=== PATIENT | female | born 1940 | race Hispanic/Latino ===

== ENCOUNTER 2018-08-18 03:28 | Inpatient (IN) | payer MEDICARE, OTHER ==
[2018-08-18] MEDS ORDERED: Ketorolac Tromethamine 30 MG/ML VIAL ONE (04:06)
[2018-08-18 04:15] LABS: #Basophils 0.1 thou/uL (0.0-0.2); #Eosinphils 0.2 thou/uL (0.0-0.7); #Lymphocytes 1.9 thou/uL (1.20-3.40); #Monocytes 0.4 thou/uL (0.11-0.59); #Neutrophils 3.4 thou/uL (1.40-6.50); %Lymphocytes 31.6 % (21.0-51.0); %Monocytes 6.2 % (0.0-10.0); %Neutrophils 58.3 % (42.0-75.0); Hemoglobin 12.4 g/dL (12.0-16.0); Mean Corpuscular HGB CONC 30.7 g/dL (32.0-36.0); Mean Corpuscular Hemoglobin 30.4 pg (27.0-31.0); Mean Platelet Volume 8.4 fL (7.4-10.4); Platelet Count 137 thou/uL (130-400); RBC Distribution Width 13.7 % (11.5-14.5); Red Blood Cell (RBC) Count 4.07 mill/uL (4.20-5.40); White Blood Cell (WBC) Count 5.9 thou/uL (4.8-10.8)
[2018-08-18 04:37] LABS: ALT (SGPT) 28 U/L (8-55); AST (SGOT) 42 U/L (5-34); Albumin 3.5 g/dL (3.4-4.8); Alkaline Phosphatase 94 U/L (40-150); Anion Gap 11 mmol/L (10-20); BUN (Urea Nitrogen) 15 mg/dL (9.8-20.1); Bilirubin, Total 0.8 mg/dL (0.2-1.2); Calc. Creatinine Clearance 0 mL/min (70-130); Calcium 9.7 mg/dL (7.8-10.44); Carbon Dioxide 29 mmol/L (23-31); Chloride 100 mmol/L (98-107); Estimated GFR-MDRD 52; Globulin 3.6 g/dL (2.4-3.5); Glucose 218 mg/dL (83-110); Potassium 4.3 mmol/L (3.5-5.1); Protein, Total 7.1 g/dL (6.0-8.3); Sodium 136 mmol/L (136-145)
[2018-08-18 05:55] LABS: INR-International Normal Ratio 1.1; PTT 31.5 SEC (22.9-36.1); Prothrombin Time 14.4 SEC (12.0-14.7)
[2018-08-18] MEDS ORDERED: Acetaminophen 325 MG TAB PO PRN (06:26)
[2018-08-18] MEDS ORDERED: Ondansetron PF 4 MG/2 ML Vial IVP PRN (06:26)
[2018-08-18] MEDS ORDERED: Ondansetron ODT 4 MG TAB PO PRN (06:26)
[2018-08-18] MEDS ORDERED: HYDROcodone/Acetaminophen 5/325 mg Tablet PO PRN ×2 (06:27)
[2018-08-18] MEDS ORDERED: Sodium Chloride 0.9% 1,000 ML IV SCH (06:44)
[2018-08-18] MEDS ORDERED: Dextrose 50% Abboject 50 ML SYRINGE SLOW IVP PRN (06:44)
[2018-08-18] MEDS ORDERED: Dextrose 5% in Water 1,000 ML IV PRN (06:44)
[2018-08-18] MEDS ORDERED: Cyclobenzaprine 10 MG TAB PO PRN (06:44)
[2018-08-18] MEDS ORDERED: traMADol HCl 50 MG TAB PO PRN (06:44)
[2018-08-18] MEDS ORDERED: hydrALAZINE 20 MG/ML VIAL SLOW IVP PRN (06:44)
--- NOTE | 2018-08-18 07:02 | HP ---
This is Augustus Blood PA-C dictating a report for Chucho Rossi MD. REQUESTING PHYSICIAN: Dr. Jiang. CONSULTATIONS: Neurosurgery, Dr. Red. HISTORY OF PRESENT ILLNESS: The patient is a 77-year-old woman, who had gotten up to go to the bathroom this morning, when she came back she missed a step and fell, hit her head on the tiled floor. She also landed on her right hip and shoulder. She was brought to the emergency department where she underwent evaluation and examination and was noted to have a moderate-sized subdural hematoma. She is unsure of how long or if she had loss of consciousness, but she has been alert and oriented since her arrival in the emergency department. MEDICATIONS: 1. Metformin. 2. . 3. NovoLog. 4. Oxybutynin. ALLERGIES: NONE. PAST MEDICAL HISTORY: Hypertension and diabetes. PAST SURGICAL HISTORY: Cholecystectomy. SOCIAL HISTORY: The patient smoked greater than 20 years ago. Rare alcohol. Denies drugs. She lives with family and ambulates without assistance. REVIEW OF SYSTEMS: A 10-point review of systems is negative as otherwise stated. PHYSICAL EXAMINATION: VITAL SIGNS: Blood pressure 136/64, heart rate 60, respirations 18, oxygen saturation is 96% on room air, and temperature is 98.6. GENERAL: The patient is resting comfortably in bed. She is awake, alert, and oriented x3. Clawson Coma Scale is 15. She has just undergone evaluation by the neurosurgical PA. She was appropriate during the entire exam. HEENT: Head is normocephalic, atraumatic. Eyes, extraocular motion intact. PERRLA bilaterally. Ears are atraumatic without discharge. Nose is atraumatic without discharge. Oropharynx is clear. NECK: Nontender. Trachea is midline. No JVD. CHEST: Clear to auscultation with good inspiratory and expiratory efforts. HEART: Regular rate and rhythm. ABDOMEN: Soft, flat, nontender with active bowel sounds. PELVIS: Stable with some tenderness to palpation to the left hip. EXTREMITIES: Neurovascularly intact x4. Right shoulder is tender to palpation in the deltoid area. The patient does have full active range of motion with some tenderness. BACK: Atraumatic and nontender. LABORATORY FINDINGS: White blood cell count 5.9, hemoglobin 12.4, hematocrit 40.3, platelets 137. Sodium 136, potassium 4.3, chloride 100, CO2 of 29, BUN 15, creatinine 1.03, glucose 218. LFTs are unremarkable. Troponin 0.20. PT 14, INR 1.1, PTT 32. RADIOGRAPHIC FINDINGS: CT of the brain without contrast shows a 16-mm subdural hematoma on the left side with a 2-mm midline shift. CT of the C-spine without contrast shows no acute abnormalities. Views of the right shoulder show no acute abnormalities. Views of the left hip show no acute abnormalities. ASSESSMENT: 1. Status post ground level fall. 2. Subdural hematoma with 2-mm midline shift. 3. Multiple contusions. 4. History of diabetes. 5. History of hypertension. PLAN: Plan will be to admit the patient to the [facility] for frequent neuro exams. Repeat head CT if she has declined 2 points on her Clawson Coma Scale or more. Otherwise, we will defer to Neurosurgery as to when she has a scheduled CT. At the time of dictation, there were no surgical plans, but we will continue to follow with this. Otherwise, the patient will have nonnarcotic pain medication, pulmonary toilet, gastritis, mechanical VTE prophylaxis. We will hold chemical VTE prophylaxis due to her intracranial hemorrhage. The evaluation, examination, laboratory, and radiographic findings will be discussed with Dr. Rossi after this dictation. Job ID: [id number]
[2018-08-18 07:07] VITALS: BMI 38.3
[2018-08-18] MEDS ORDERED: Prevnar 13-Val Conj/PF 0.5 ML SYRINGE IM ONE (07:15)
--- NOTE | 2018-08-18 07:24 | CT ---
CERVICAL SPINE CT NONCONTRAST: Date: 08/18/18 CLINICAL HISTORY: Fall with injury and pain. FINDINGS: There is moderate multilevel degenerative change throughout the cervical spine. Focal kyphosis is roz tered at the inferior aspect. No acute subluxation. No evidence of craniocervical distraction injury. IMPRESSION: Degenerative changes of the cervical spine, without evidence of an acute fracture. POS: [facility]
--- NOTE | 2018-08-18 07:28 | CT ---
CT HEAD NONCONTRAST: Date: 08/18/18 COMPARISON: 03/07/09. INDICATION: Fall with pain. FINDINGS: There is a left convexity hyperdense hematoma measuring up to 17 mm, compatible with an acute left martinez bdural hemorrhage. There is also minimal extra-axial hemorrhage along the anterior interhemispheric f channing. There is approximately 1-2 mm of rightward subfalcine herniation at the level of the septum raysa ucidum. Ventricular system is normal in size. There is a small left maxillary sinus fluid level. IMPRESSION: Acute subdural hematoma overlying left convexity with minimal associated midline shift. There is also minimal extra-axial hemorrhage along the anterior interhemispheric falx. Telephone call of findings placed to Dr. Eduardo Jiang, ER physician, at 0446 hours on 08/18/18. CODE CR. POS: [facility]
[2018-08-18] MEDS: Acetaminophen 1,000 MG in Premix Bag 1 BAG IVPB SCH ×4 (07:52→23:27)
[2018-08-18] MEDS: Famotidine 20 MG TAB PO SCH ×2 (07:57→19:40)
--- NOTE | 2018-08-18 08:06 | RAD ---
LEFT HIP 2 VIEWS: Date: 08/18/18 HISTORY: Left hip pain. FINDINGS: Minimal joint space loss. Mild osteophytosis and subchondral sclerosis. Femoral head contour is maint ained. No acute fracture or dislocation. IMPRESSION: Mild degenerative changes left hip. POS: [facility]
--- NOTE | 2018-08-18 08:09 | RAD ---
RIGHT SHOULDER 3 VIEWS: Date: 08/18/18 HISTORY: Right shoulder pain. FINDINGS: Marked elevation of the humeral head with cortical remodeling of the undersurface of the acromion. Ac romioclavicular alignment is maintained. Moderate osteophytosis. No acute fracture, dislocation, or a ggressive osseous erosions. IMPRESSION: 1. Chronic rotator cuff tear with cortical remodeling of the undersurface of the acromion. 2. Mild to moderate osteoarthritic changes. POS: [facility]
--- NOTE | 2018-08-18 11:56 | CON ---
DATE OF CONSULTATION: HISTORY OF PRESENT ILLNESS: Ms. Valdivia is a 77-year-old female, who came to the Emergency Department this morning. She fell out of bed. The patient states that it was a new bed for her, but height is a little different than she is used to. She lives with her daughter. Her daughter found her on the floor. She had been there for no longer than an hour. Unknown loss of consciousness. The patient complains of headache, left hip pain, and right shoulder pain. She has some numbness and tingling to the right hand and forearm. Neurosurgery was consulted due to a left-sided subdural hemorrhage. The patient is not on any blood thinners. No aspirin. When I entered the emergency department room, she is resting comfortably. She denies any headache at this time. She states the medication is helping. She is moving all 4 extremities well. She does have pain in the right shoulder and complains of paresthesia on her right hand and pain in the left hip. She had some tenderness over the anterior portion of the right shoulder. She is alert and oriented x3. There is no asymmetry in her face. Neurologic grossly intact. There are no lateralizing motor deficits. Short and long-term memory are intact. REVIEW OF SYSTEMS: A 10-point review of systems has been completed and is negative other than stated in the above HPI. ALLERGIES: NO KNOWN DRUG ALLERGIES. MEDICATIONS: 1. Metformin. 2. Citalopram. 3. NovoLog. 4. Oxybutynin chloride. PAST MEDICAL HISTORY: Diabetes. SOCIAL HISTORY: The patient denies alcohol or drug use. She lives with her daughter, recently moved, but she is able to ambulate on her own without use of assistive device. She takes care of herself in daily activities. PHYSICAL EXAMINATION: VITAL SIGNS: Blood pressure 136/64, heart rate 60, respirations 18, temperature 98.6, and O2 saturations 96% on room air. CONSTITUTIONAL: The patient is alert and oriented. She is normotensive and afebrile. No visible distress. Nontoxic. HEENT: Head is normocephalic and atraumatic. There is a hematoma on the left occipital area. No bleeding. Pupils are equal, round, and reactive to light. Extraocular movements are intact. Hearing is intact. Moist mucous membranes. NECK: There is some right-sided tenderness brachial plexus tenderness. EXTREMITIES: The patient has right shoulder pain. Intact patient access registrar strength. Weaker on the right upper extremity in biceps due to shoulder pain. Triceps equal bilaterally. She has normal 5/5 patient access registrar strength, deltoid, biceps, triceps on the left and 5/5 strength in dorsiflexion, plantar flexion, hip flexion on the right. The patient's anterior hip pain, tenderness, and hip flexion is quite painful for her. NEURO: The patient is alert and oriented. She is GCS of 15. Cranial nerves II through XII are tested and intact. There is no facial asymmetry. Speech is spontaneous and fluent. Short and long-term memory are intact. There are no lateralizing motor deficits. Paresthesias to the right hand and forearm. IMAGING: CT of the brain shows a left side subdural measuring 16.8 mm at its largest. There is no midline shift. ASSESSMENT AND PLAN: Ms. Valdivia is a 77-year-old female, who fell out of bed. She has a left subdural hemorrhage. She is not on any blood thinners. No aspirin. Trauma team is going to admit the patient. We will recommend neuro checks. Repeat a CT in the morning of the head and keep her blood pressure normal range. We would like to not have to do a large craniotomy on this patient currently as she is neurological intact.. If there are questions, please contact [facility]. Job ID: [id number] MTDD
--- NOTE | 2018-08-18 12:07 | PRG ---
DATE OF SERVICE: I personally interviewed and examined the patient, reviewed documentation of Miri Shrestha PA-C, dated 08/18/2018. Briefly, Shantal Valdivia is a very pleasant 77-year-old woman, found down by her daughter in the bathroom. She was brought to the emergency department, where CT examination of the brain revealed acute subdural hematoma over the left hemisphere. At the time she arrived in the emergency department and through her hospitalization thus far, she has remained wide awake and without neurological deficit. I have seen her in the ICU and I found her vitals were stable. She is alert. She is talking to her family. Her cognitive function is good. Her speech is normal in both expressive and receptive modalities. Her cranial nerves are intact. There is no pronator drift. There is no lateralizing motor or sensory deficits I can appreciate. I reviewed CT imaging of the brain. There is acute subdural hematoma over the left hemisphere. There is local mass effect, but no midline shift. I discussed with Ms. Valdivia the presence of blood products in the left hemisphere. Right now, they are thickened solid and would require craniotomy to remove them. We are going to try our best to wait until this blood liquifies. We will get a chance for the body to reserve the material on its own and if, instead, she developed a chronic subdural hematoma over the hemisphere, we can use yusuf holes to evacuate it with smaller operation in the future. We are going to get a CT examination of brain tomorrow, and if it is stable from this one, then she can move out of the intermediate care unit. In 2 weeks we will repeat it and 2 weeks later as well. Once were convinced that the blood is on its way to reabsorption, then we will finish our interval imaging followup. If, on the other hand, she has new neurological deficits or increase in the size of the blood products, we can reconsider surgery in the future. Job ID: [id number]
--- NOTE | 2018-08-18 12:26 | PRG ---
DATE OF SERVICE: 08/18/2018 SUBJECTIVE: Ms. Valdivia is a 77-year-old woman, who was admitted following a ground level fall. The patient was noted with a small left convexity subdural hematoma. She has remained with a Fabio Coma Scale of 15. She is tolerating diet and having normal urinary function. OBJECTIVE: VITAL SIGNS: Blood pressure 120/66, pulse is 61, respiratory rate is 24, temperature is 97.6 degrees Fahrenheit, oxygen saturation 100% on room air. HEENT: Pupils are equal, round, reactive to light and accommodation. HEART: Regular rate and rhythm. No murmurs or gallops auscultated. LUNGS: Clear to auscultation bilaterally. Breathing, regular and nonlabored. ABDOMEN: Soft, nontender, nondistended. NEUROLOGIC: No focal deficits present. The patient clearly has a Troy Coma Scale of 15 and is oriented x3. LABORATORY FINDINGS: Laboratory findings have been evaluated including normal CBC with 5900 white blood cells, hemoglobin and hematocrit 12.4 and 40.3 respectively, platelet count 137,000. Metabolic profile; sodium 136, potassium 4.3, chloride is 100, bicarb 29, BUN 15, creatinine is 1.03, glucose 218. IMPRESSION: Status post ground level fall with small left convexity subdural hematoma with no mass effects. The patient is neurologically normal. PLAN: The patient will be transferred to general surgical floor. We will increase activity per Physical and Occupational Therapy. Diet will also be advanced. Job ID: [id number]
[2018-08-18] MEDS ORDERED: Metoprolol Tartrate 50 MG TAB PO SCH (17:44)
[2018-08-18] MEDS: HumaLOG 300 UNITS/3 ML VIAL SC PRN (18:11)
[2018-08-18 18:14] LABS: Anion Gap 11 mmol/L (10-20); BUN (Urea Nitrogen) 16 mg/dL (9.8-20.1); Calc. Creatinine Clearance 70 mL/min (70-130); Calcium 8.7 mg/dL (7.8-10.44); Carbon Dioxide 24 mmol/L (23-31); Chloride 101 mmol/L (98-107); Estimated GFR-MDRD 57; Glucose 232 mg/dL (83-110); Magnesium 1.4 mg/dL (1.6-2.6); Phosphorus 3.5 mg/dL (2.3-4.7); Potassium 4.1 mmol/L (3.5-5.1); Sodium 132 mmol/L (136-145)
[2018-08-18 18:15] LABS: Troponin I 0.013 ng/mL (< 0.028)
[2018-08-18] MEDS ORDERED: Magnesium 2 GM/50 ML 4 GM in Premix Bag 1 BAG IVPB SCH (19:15)
[2018-08-18] MEDS ORDERED: PHOS-NAK 1 PKT PACK PO SCH (19:15)
[2018-08-18] MEDS ORDERED: Magnesium Sulfate 4 GM in Sodium Chloride 0.9% 250 ML 250 ML IVPB SCH (19:30)
[2018-08-19 05:14] LABS: Phosphorus 3.8 mg/dL (2.3-4.7)
[2018-08-19 05:16] LABS: #Basophils 0.1 thou/uL (0.0-0.2); #Eosinphils 0.1 thou/uL (0.0-0.7); #Lymphocytes 1.6 thou/uL (1.20-3.40); #Monocytes 0.3 thou/uL (0.11-0.59); #Neutrophils 2.3 thou/uL (1.40-6.50); %Basophils 1.3 % (0.0-1.0); %Eosinophils 2.1 % (0.0-10.0); %Lymphocytes 36.7 % (21.0-51.0); %Monocytes 7.1 % (0.0-10.0); %Neutrophils 52.8 % (42.0-75.0); Anion Gap 12 mmol/L (10-20); BUN (Urea Nitrogen) 13 mg/dL (9.8-20.1); Calc. Creatinine Clearance 83 mL/min (70-130); Calcium 8.7 mg/dL (7.8-10.44); Carbon Dioxide 25 mmol/L (23-31); Chloride 103 mmol/L (98-107); Elliptocytes SLIGHT = 2-5 cells (100X) (0-1/hpf); Estimated GFR-MDRD 67; Glucose 156 mg/dL (83-110); Hemoglobin 11.7 g/dL (12.0-16.0); MDiff Complete? YES; Magnesium 2.4 mg/dL (1.6-2.6); Mean Corpuscular HGB CONC 32.9 g/dL (32.0-36.0); Mean Corpuscular Hemoglobin 32.4 pg (27.0-31.0); Mean Corpuscular Volume 98.3 fL (78.0-98.0); Mean Platelet Volume 8.3 fL (7.4-10.4); Platelet Count 111 thou/uL (130-400); Platelet Morphology Comment Appears Decreased; Potassium 4.1 mmol/L (3.5-5.1); RBC Distribution Width 13.6 % (11.5-14.5); Red Blood Cell (RBC) Count 3.61 mill/uL (4.20-5.40); Sodium 136 mmol/L (136-145); White Blood Cell (WBC) Count 4.3 thou/uL (4.8-10.8)
[2018-08-19] MEDS: HumaLOG 300 UNITS/3 ML VIAL SC PRN ×3 (05:37→17:48)
[2018-08-19] MEDS: Levothyroxine Sodium 50 MCG TAB PO SCH (05:38)
[2018-08-19] MEDS ORDERED: Hydrochlorothiazide 25 MG TAB PO SCH ×2 (09:00→11:15)
[2018-08-19] MEDS ORDERED: Escitalopram Oxalate 20 mg Tablet PO SCH (09:00)
[2018-08-19] MEDS ORDERED: Oxybutynin ER 5 MG TAB PO SCH (09:00)
--- NOTE | 2018-08-19 09:56 | PRG ---
DATE OF SERVICE: 08/19/2018 SUBJECTIVE: The patient is being followed for acute left-sided subdural hematoma after a mechanical fall. Her repeat a.m. CT with significant improvement of her midline shift and less acute blood. She did have several syncopal episodes overnight and this morning. These are of unclear etiology. OBJECTIVE: GENERAL: On exam this morning, the patient is awake, alert, and oriented x3. NEUROLOGIC: She has free active range of motion of all extremities. No focal motor weakness or reflex asymmetry. HEENT: Pupils are equal and reactive. ASSESSMENT AND PLAN: With regard to her CT, this appears much improved. It is unclear why she continues to have syncopal events and we will ask the trauma service to help assist with evaluating this further. We will plan to follow up in our office with a repeat scan in a few weeks. No acute neurosurgical intervention is anticipated at this time. The patient should remain off anticoagulants. Job ID: [id number]
--- NOTE | 2018-08-19 10:00 | CT ---
CT BRAIN WITHOUT CONTRAST: Date; 08/19/18 INDICATION: Follow-up subdural hematoma. COMPARISON: Prior exam dated 08/18/18 at 0429 hours. FINDINGS: There has been some redistribution of the subdural hematoma overlying the left cerebral convexity. Th e largest collection overlies the left parietal lobe. The current exam now measures 6.7 mm, previousl y measuring 16 mm. There is slightly more prominent interhemispheric subdural hematoma along the falx and layered along the left tentorium. No appreciable midline shift is evident. No hydrocephalus is e vident. Basilar cisterns are patent. No acute infarct is noted. There is scalp contusion overlying th e left parietal region. Mastoid air cells are clear. Paranasal sinuses are clear. The skull is intact . IMPRESSION: 1. Some interval dispersal of the left convexity subdural hematoma with slightly mass effect on the underlying left cerebral hemisphere. 2. Slightly increased interhemispheric parafalcine and left tentorium subdural hematoma. Small punct ate focus of density is seen within the sulci of the left frontal lobe on image 25 of series 2, likel y reflecting small subarachnoid hemorrhage component. 3. No midline shift or hydrocephalus is evident. POS: [facility]
[2018-08-19 10:53] LABS: T4 6.9 ug/dL (4.87-11.72); Thyroid Stimulating Hormone 3.1572 uIU/mL (0.35-4.94)
--- NOTE | 2018-08-19 11:03 | ULT ---
CAROTID DOPPLER: Date: 08/19/18 Ultrasound Doppler studies performed on extracranial carotid arteries. INDICATION: Syncope. FINDINGS: Ultrasound images show no significant echogenic plaque. The velocity recordings are normal bilaterally. The left vertebral is not identified. The right verte bral shows antegrade flow. IMPRESSION: 1. No evidence of internal carotid artery stenosis and no significant plaque identified by ultrasoun d. 2. Left vertebral is not identified. POS: [facility]
[2018-08-19] MEDS: Famotidine 20 MG TAB PO SCH (11:04)
[2018-08-19] MEDS: Scopolamine 1.5 mg/72 hour Patch TD SCH (11:07)
--- NOTE | 2018-08-19 11:16 | PRG ---
DATE OF SERVICE: 08/19/2018 SUBJECTIVE: I visited with Ms. Valdivia and agree with Shena Morales's evaluation on 08/19/2018. The patient is doing quite well clinically without complaints and neurologically intact. Her CT is actually substantially improved with less visible subdural hematoma. From a neurosurgical perspective, she can be mobilized for dismissal and I will arrange a 2-week followup with Dr. Red with a head CT. I understand that the trauma services perform a syncope evaluation at this time and we will defer to them in this regard. Job ID: [id number]
[2018-08-19] MEDS ORDERED: ISOVUE-370 76%-LOCM 1 ML ONE (11:52)
--- NOTE | 2018-08-19 12:42 | CT ---
CTA of the head with and without IV contrast and 3-D reformatted imaging. CTA of the neck with IV contrast and 3-D reformatted imaging. INDICATION: Syncope and vertigo COMPARISON: CT the brain dated 08/19/2018 FINDINGS: CTA OF THE HEAD WITH AND WITHOUT CONTRAST: Hemorrhage: The extra axial hemorrhage overlying the left cerebral convexity and along the interhemi spheric falx and left tentorium is better detailed on the noncontrast examination. Ishemia/Infarction: None. Midline Shift: None. Hydrocephalus: None. Skull and Extracranial Soft tissues: Normal. CTA OF THE BRAIN: Right ICA: Patent. Right MCA: Patent. Right MARY: Patent. ACOM: Patent. Left ICA: Patent. Left MCA: Patent. Left MARY: Patent. PCOMs: Patent. Vertebral arteries: Patent. Basilar Artery: Patent. surgery assistant: Patent. Incidentals: None. CTA OF THE NECK WITH CONTRAST: Right CCA: Mildly tortuous Right ICA: Mild narrowing involving the proximal right ICA due to atherosclerotic plaque. Right Subclavian: Patent. Right Vertebral Artery: Patent. Left CCA: Mildly tortuous Left ICA: Mild narrowing involving the proximal left ICA due to noncalcified atherosclerotic plaque. Left Subclavian: Patent. Left Vertebral Artery: Patent. Aerodigestive tract: Clear. Parotids/Submandibular/Thyroid glands: Normal. Lymph nodes: No pathologically enlarged lymph nodes. Lung Apices: Clear. Bones: There is scattered degenerative and osteoarthritic change present. Incidentals: None. IMPRESSION: 1. No hemodynamically significant stenosis, occlusion or aneurysmal formation.
--- NOTE | 2018-08-19 15:10 | CON ---
DATE OF CONSULTATION: 08/19/2018 REASON FOR CONSULTATION: Dysrhythmia and questionable syncope. HISTORY OF PRESENT ILLNESS: Ms. Valdivia is a 77-year-old woman with no previous history of CAD, who recently fell. The history is somewhat vague. The history in the chart states she slipped and fell, although the family is convinced she had a syncopal episode. Either way, this was unwitnessed. The patient has no recollection of the episode. She had a moderate-sized subdural hematoma. She did have several episodes noted on the monitor. They were suggestive of artifact, but could not completely exclude torsade de pointes. There is some association between torsades and subdural hematoma. She denied chest pain or pressure or associated symptoms prior to the episode. PAST MEDICAL HISTORY: Hypertension and diabetes mellitus. HOME MEDICATIONS: Include: 1. Metformin. 2. NovoLog. 3. Oxybutynin. ALLERGIES: NONE. PAST SURGICAL HISTORY: Cholecystectomy. SOCIAL HISTORY: No current tobacco or alcohol use. REVIEW OF SYSTEMS: Ten-point review of systems is reviewed and as above. Otherwise, negative. PHYSICAL EXAMINATION: GENERAL: Patient is a pleasant 77-year-old woman, who is in no acute distress. The patient appears their stated age. VITAL SIGNS: Blood pressure 143/71, pulse 81, temperature afebrile. NEUROLOGIC: The patient is alert and oriented x3 with no focal neurologic deficits. HEENT: Sclerae without icterus. Mouth has moist mucous membranes with normal pallor. NECK: No JVD. Carotid upstroke brisk. No bruits bilaterally. LUNGS: Clear to auscultation with unlabored respirations. BACK: No scoliosis or kyphosis. CARDIAC: Regular rate and rhythm with normal S1 and S2. No S3 or S4 noted. No significant rubs, murmurs, thrills, or gallops noted throughout the precordium. PMI is not displaced. There is no parasternal heave. ABDOMEN: Soft, nontender, nondistended. No peritoneal signs present. No hepatosplenomegaly. No abnormal striae. EXTREMITIES: 2+ femoral and 2+ dorsalis pedis pulses. No cyanosis, clubbing, or edema. SKIN: No gross abnormalities. PERTINENT LABORATORY DATA: Hemoglobin 11.7, hematocrit 35.5, white blood cell count 4.3. Magnesium 2.4. Otherwise, electrolytes within normal limits. Initial magnesium was 1.4. IMPRESSION: 1. Dysrhythmia. 2. Questionable syncope. 3. Subdural hematoma. RECOMMENDATIONS: It is difficult to ascertain whether some of her rhythm has been due to true torsade de pointes or artifact. The family did state she had 4 syncopal episodes this morning. No dysrhythmias were present. At this point, she has had magnesium supplementation appropriately to magnesium level of 2.4. I have also stopped Lexapro in addition to hydrochlorothiazide. I did review the medications that could prolong her QT interval. There are also reports of torsade de pointes noted with subdural hematoma. At this point, we will continue to monitor overnight. Her LVEF at bedside did appear normal. We will review in detail. Job ID: [id number] [facility]
[2018-08-19] MEDS: traMADol HCl 50 MG TAB PO PRN (15:25)
[2018-08-19] MEDS: Gabapentin 100 MG CAP PO SCH ×2 (15:28→20:41)
--- NOTE | 2018-08-19 15:53 | RAD ---
Chest AP view INDICATION: Fall with flank pain COMPARISON: February 17, 2004 FINDINGS: Lungs:The lungs are clear Cardiac silhouette pulmonary vasculature:The cardiomediastinal silhouette appears within normal limit s. Pleural spaces:No pleural effusion or pneumothorax is demonstrated. Upper abdomen:No abnormality seen. Osseous structures: There is scattered degenerative and osteoarthritic change present. No acute fract ure or subluxation demonstrated. Additional findings:None. IMPRESSION: No acute cardiopulmonary abnormality.
--- NOTE | 2018-08-19 16:06 | RAD ---
XR Hip Lt 2-3 View INDICATION: Left hip pain COMPARISON: August 18, 2018 FINDINGS: Bones: No acute osseous abnormality. Bone mineralization appears within normal limits. Hip joint: There is mild degenerative arthrosis of the left hip which is stable to the prior. SI joints and symphysis pubis: Left SI joint demonstrates mild degenerative change. The symphysis pub is is not well seen. Intrapelvic contents: Visualized bowel gas pattern is within normal limits. Surrounding soft tissues: Radiographically normal. IMPRESSION: 1. Stable mild degenerative arthrosis of the left hip. No acute fracture or subluxation demonstrated.
[2018-08-19] MEDS: Atorvastatin Calcium 20 MG TAB PO SCH (20:41)
[2018-08-19] MEDS ORDERED: Cyclobenzaprine 10 MG TAB PO SCH (21:00)
[2018-08-20] MEDS: traMADol HCl 50 MG TAB PO PRN (04:15)
[2018-08-20 04:43] LABS: Anion Gap 11 mmol/L (10-20); BUN (Urea Nitrogen) 11 mg/dL (9.8-20.1); Calc. Creatinine Clearance 83 mL/min (70-130); Carbon Dioxide 28 mmol/L (23-31); Chloride 97 mmol/L (98-107); Estimated GFR-MDRD 67; Glucose 213 mg/dL (83-110); Magnesium 1.8 mg/dL (1.6-2.6); Phosphorus 3.3 mg/dL (2.3-4.7); Sodium 132 mmol/L (136-145)
[2018-08-20] MEDS: HumaLOG 300 UNITS/3 ML VIAL SC PRN ×4 (05:57→19:57)
[2018-08-20] MEDS: Levothyroxine Sodium 50 MCG TAB PO SCH (05:57)
[2018-08-20] MEDS ORDERED: Sodium Chloride 0.9% 1,000 ML IV SCH (08:00)
[2018-08-20] MEDS ORDERED: Hydrochlorothiazide 25 MG TAB PO SCH (09:00)
--- NOTE | 2018-08-20 09:04 | PDOC.CTH ---
Cardiology Progress Note - Subjective Pt with another syncopal epsiode this am. OCcurred when pt lifted and turned to the left. I ask nursing staff to lift pt and turn to the left. Pt again had what appeared to be syncope. Pt HR was stable with no dysrhythmias noted. Pt awoke quickly after 10 seconds. - Objective Vital Signs Temp 08/20/18 07:22 97.7 F 08/20/18 03:39 99.4 F 08/19/18 23:47 98.6 F Weight 201 lb 9 oz 08/19/18 08/20/18 08/21/18 06:59 06:59 06:59 Intake Total 1950 400 Output Total 1425 400 Balance 525 0 - Physical Examination General/Neuro: NAD Neck: carotid US brisk, no JVD present Lungs: unlabored respirations Heart: PMI normal, RRR Abdomen: no HSM, NT/ND, soft Extremities: + femoral B - Labs Result Diagrams: 08/19/18 04:38 08/20/18 04:13 Troponin/CKMB Troponin I 0.013 ng/mL (< 0.028) 08/18/18 17:41 - Assessment/Plan Syncope Subdural HT HTN DM Rhythm suggests artifact. Pt having ?syncope with no rhythm, issues and qwuickly awakens without prodrome. No recollection. No rhthym issues. Recommend neuology consult. ?Conversion DO. Meds that can potential cause torsades have been DC Some reports of torsades and SDH in past but likely artifact Pt with 4 syncopal episodes yesterday though without rythm changes EF normal on echo No further reocmmendations
[2018-08-20] MEDS: Acetaminophen 325 MG TAB PO SCH ×3 (09:58→20:00)
[2018-08-20] MEDS ORDERED: Senokot S 8.6-50 MG TAB PO SCH ×2 (10:28→10:45)
[2018-08-20] MEDS ORDERED: Polyethylene Glycol 3350 17 GM Packet PO SCH (10:30)
[2018-08-20] MEDS: Sodium Chloride 0.9% 1,000 ML IV SCH ×2 (11:24→19:58)
[2018-08-20 12:09] LABS: Bilirubin Negative (Negative); Blood, Urine Negative (Negative); Glucose, Urine (Dipstick) 250 mg/dL (Negative); Leukocyte Small (Negative); Nitrite Positive (Negative); Protein, Urine (Dipstick) Negative (Neg-Trace); Urobilinogen 0.2 mg/dL (Less than 2)
[2018-08-20 12:11] LABS: Clarity Cloudy (Clear)
[2018-08-20 12:19] LABS: Bacteria/HPF 4+ HPF (None Seen); RBC/HPF 0-3 HPF (0-3); Squamous Epithelial 0-3 HPF (0-3)
[2018-08-20] MEDS ORDERED: Milk Of Magnesia 30 ML UDCUP PO SCH (18:15)
[2018-08-20] MEDS: Senokot S 8.6-50 MG TAB PO SCH (20:00)
[2018-08-20] MEDS: Sulfameth/Trimethoprim DS 800-160mg TAB PO SCH (20:00)
[2018-08-20] MEDS: Atorvastatin Calcium 20 MG TAB PO SCH (20:00)
[2018-08-21] MEDS: Acetaminophen 325 MG TAB PO SCH ×4 (01:31→20:51)
[2018-08-21] MEDS: Levothyroxine Sodium 50 MCG TAB PO SCH (05:35)
[2018-08-21] MEDS: HumaLOG 300 UNITS/3 ML VIAL SC PRN ×3 (05:36→20:52)
[2018-08-21 06:05] LABS: Anion Gap 11 mmol/L (10-20); BUN (Urea Nitrogen) 8 mg/dL (9.8-20.1); Calc. Creatinine Clearance 87 mL/min (70-130); Calcium 8.6 mg/dL (7.8-10.44); Carbon Dioxide 28 mmol/L (23-31); Chloride 101 mmol/L (98-107); Estimated GFR-MDRD 71; Glucose 208 mg/dL (83-110); Magnesium 1.8 mg/dL (1.6-2.6); Phosphorus 2.6 mg/dL (2.3-4.7); Potassium 4.3 mmol/L (3.5-5.1); Sodium 136 mmol/L (136-145)
[2018-08-21] MEDS: Sodium Chloride 0.9% 1,000 ML IV SCH (07:00)
[2018-08-21] MEDS: Sulfameth/Trimethoprim DS 800-160mg TAB PO SCH ×2 (09:15→20:51)
[2018-08-21] MEDS: Senokot S 8.6-50 MG TAB PO SCH ×2 (09:20→20:51)
--- NOTE | 2018-08-21 09:31 | PRG ---
DATE OF SERVICE: 08/19/2018 SUBJECTIVE: The patient is a _77 _ year old female coming for evaluation of headache after a ground level fall. She was diagnosed with subdural hematoma. Repeat brain CT scan show hematoma is getting smaller. Neurosurgery saw her and they was ok for her to be discharged. Her hemodynamic is stable, but family member reported she has been having episode of syncope which last a few seconds. otherwise she have no other complain Ambulation. no, she was afraid she would be passing out Nausea, vomiting. no Pain. no Fever. no Shortness of breath. no Having bowel movement. no OBJECTIVE: VITAL SIGNS: Current temperature __98 , current heart rate ____88 , current blood pressure __130/80 , current respiratory rate ___14 , current O2 sat 98 . GENERAL: Well appearing, alert and awake. _no acute respiratory distress. HEENT: Normocephalic, atraumatic. RESPIRATORY: No respiratory distress. LUNGS: Clear to auscultation bilaterally. CARDIOVASCULAR: Regular rate and rhythm. ABDOMEN: Soft, nontender, nondistended. No deformity. Rebound and guarding negative. EXTREMITIES: Warm and well perfused. NEUROLOGICAL: Oriented x3. ASSESSMENT: status post ground level fall SDH pre syncope PLAN: 1. Diagnostic test to be ordered. echo cardiology, carotic U/S, Vertebral CT angiography 2. Pharmacological management. pain control 3. Intervention to be ordered. instruct to change position slowly 4. Continue to work with PT/OT. 5. Continue prophylaxis _ DVT prophylaxis, gastritis prophylaxis. Job ID: [id number] MTDD
[2018-08-21] MEDS ORDERED: Hydrochlorothiazide 25 MG TAB PO SCH (09:45)
--- NOTE | 2018-08-21 11:19 | PRG ---
DATE OF SERVICE: 08/21/2018 SUBJECTIVE: Ms. Valdivia is a 77-year-old woman with multiple recurrent near syncopal episodes without any hemodynamic derangement. The patient is seen this morning, quite awake and alert, participating with physical therapy. Denying any active problems. She is tolerating diet, having normal bowel and urinary function. OBJECTIVE: VITAL SIGNS: This morning includes, blood pressure is 137/81, pulse is 74, respiratory rate is 26, temperature is 98.6 degrees Fahrenheit, oxygen saturation is 97% on room air. HEENT: Pupils equal, round, and reactive to light and accommodation. HEART: Reveals regular rate and rhythm. No murmurs or gallops auscultated. LUNGS: Clear to auscultation bilaterally. Breathing, regular and nonlabored. ABDOMEN: Soft, nontender, nondistended. NEUROLOGIC: Fabio Coma Scale is 15. The patient has no neurologic deficits present. LABORATORY FINDINGS: Today includes metabolic profile; sodium 136, potassium 4.3, chloride is 101, bicarb is 28, BUN 8, creatinine is 0.79, glucose 208, magnesium 1.8, and phosphorus 2.6. IMPRESSIONS: 1. Status post ground level fall. 2. Small left convexity subdural hematoma, neurologically stable. 3. Less frequent recurrent vague near syncopal episodes without any hemodynamic derangement. PLAN: 1. Increase activity per Physical and Occupational therapy. 2. We will ask Neurology to evaluate the patient to exclude narcolepsy. 3. The patient is certainly hemodynamically and neurologically stable for transfer to general surgical floor. Job ID: [id number] [facility]
[2018-08-21] MEDS ORDERED: traMADol HCl 50 MG TAB PO SCH (13:00)
--- NOTE | 2018-08-21 14:12 | PRG ---
DATE OF SERVICE: 08/21/2018 SUBJECTIVE: Ms. Valdivia from a CV standpoint, appears to be doing well. She continues to have recurrent episodes of syncope upon standing. I have not been able to perform orthostatics. Her blood pressure from lying to sitting is normal. I am not able to get a blood pressure standing, but do give one shortly thereafter with no significant change in blood pressure. Her LVEF appears normal. No significant dysrhythmias present. OBJECTIVE: VITAL SIGNS: Blood pressure 160/81, pulse 76, and temperature afebrile. LUNGS: Clear to auscultation. HEART: Regular rate and rhythm. ABDOMEN: Soft, nontender, and nondistended. EXTREMITIES: No edema. LABORATORY DATA: Hemoglobin 11.6. IMPRESSION: 1. Subdural hematoma. 2. Recurrent syncope. RECOMMENDATIONS: Etiology to her current syncope is unknown. I do not see a clear cardiac etiology. Of course, I am not able to assess complete orthostatics, but based on the current numbers, it does not appear her blood pressure is decreasing. I would recommend Neurology consult to assess for neurologic cause versus a psychiatric cause. Otherwise, from my standpoint, I have no further recommendations. Please re-consult if needed. At this point, does not need a 3-week event recorder given no witnessed syncopal episode without significant dysrhythmias. Job ID: [id number]
--- NOTE | 2018-08-21 17:01 | EKG ---
Test Reason : Blood Pressure : / mmHG Vent. Rate : 057 BPM Atrial Rate : 057 BPM P-R Int : 182 ms QRS Dur : 088 ms QT Int : 490 ms P-R-T Axes : 050 034 046 degrees QTc Int : 476 ms Sinus bradycardia Otherwise normal ECG Confirmed by NILSA FREITAS ([id number]) on 08/21/2018 5:00:38 PM Referred By: Confirmed By:NILSA FREITAS
[2018-08-21] MEDS: traMADol HCl 50 MG TAB PO SCH (18:12)
[2018-08-21] MEDS: Atorvastatin Calcium 20 MG TAB PO SCH (20:51)
[2018-08-22] MEDS: traMADol HCl 50 MG TAB PO SCH ×3 (00:23→12:09)
--- NOTE | 2018-08-22 01:16 | CON ---
DATE OF CONSULTATION: 08/21/2018 HISTORY OF PRESENT ILLNESS: I am seeing Ms. Valdivia at our [facility] Step-down ICU as an electrophysiology area development consultant. Her problems are: 1. Admission with fall, hitting her right hip and shoulder. Cannot rule out orthostatic hypotension. 2. Artifact on telemetry. No ventricular tachycardia documented. 3. Preserved LVEF at 55% to 60%, diastolic dysfunction. 4. Mild MR, AI and TR and left atrial enlargement on echo 08/19/2018. 5. History of diabetes. 6. History of hypertension, systolic. 7. Subdural hematoma related to the fall. ALLERGIES: NONE. MEDICATIONS: 1. At home include: Metformin. 1. Oxybutynin. 2. Levothyroxine. 3. Metoprolol HCTZ 50/25 mg daily. 4. Escitalopram/Lexapro 20 mg daily. 5. Lipitor 20 mg daily. 6. Insulin aspartate. 7. NovoLog as directed. SUBJECTIVE: Ms. Valdivia was admitted on the 12th after a fall, hitting her hip and shoulder on the right side and she suffered a moderate-size subdural hematoma. She is not entirely sure whether she did not lose consciousness, but she has been alert and oriented since the fall and to the ER. She continues to complain of muscle pains and back aches. Denies palpitations or angina-like discomforts. No stroke-like symptoms or neurological deficits. REVIEW OF SYSTEMS: Rest of 12-point review of system otherwise unremarkable. PAST MEDICAL HISTORY: As above. SOCIAL HISTORY: No smoking, EtOH, or drug abuse noted. FAMILY HISTORY: Not contributory. PHYSICAL EXAMINATION: VITAL SIGNS: Blood pressure is 129/80, heart rate 96, respirations 22, temperature 98.1 degrees Fahrenheit. GENERAL: Alert, oriented, obese woman in no apparent distress. NECK: Supple. Jugular veins difficult to visualize. CHEST: Coarse without crackles. HEART: Sounds are regular to rate and rhythm and distant. No murmur or gallop is noted. ABDOMEN: Benign. Bowel sounds are positive. Extremities: Lower extremity without edema, clubbing, or cyanosis. Pulses are adequate. NEUROLOGIC: The patient is nonfocal. MUSCULOSKELETAL: Without joint swelling or deformities. SKIN: Without rash. DATABASE: EKGs reviewed revealing sinus rhythm, no ST-T changes. Telemetry strips also reviewed and does demonstrate sinus rhythm and occasional artifact is noted, but no true ventricular tachycardia is seen. Mild bradycardia at 57 beats per minute is seen. LABORATORY DATA: White cell count 4.3, hemoglobin 7.7, platelet count is 111. INR 1.1. Sodium 136, potassium 4.3, BUN is 8, creatinine is 0.79. ASSESSMENT AND PLAN: Ms. Valdivia is a pleasant 77-year-old woman with a history of diabetes, hypertension, who presents after a fall, not clear whether it is syncope or not but she had no recurrent arrhythmias since admit. She did have artifact on telemetry, so it is clearly not ventricular tachycardia. Orthostatic blood pressures were attempted. A slight decrease in her blood pressure on sitting up, but she has not stood up long enough so far to measure her blood pressure in an upright fashion. The reason for her difficulty to get up is possibly musculoskeletal, cannot completely rule out orthostatic issues. Support stocking could be recommended and avoiding dehydration would be reasonable. If necessary after improving orthostatic hypotension, Florinef or midodrine could be considered, if conservative measures do not yield results. At this point, though I do not see any arrhythmias and I would treat her for now conservatively. PLAN: At this point, I would sign off. Thank you for allowing me to participate in the care of this patient. Please call, if I could be of further help. Job ID: [id number]
[2018-08-22] MEDS: Acetaminophen 325 MG TAB PO SCH ×4 (04:52→21:03)
[2018-08-22] MEDS: Levothyroxine Sodium 50 MCG TAB PO SCH (06:21)
[2018-08-22] MEDS: HumaLOG 300 UNITS/3 ML VIAL SC PRN ×4 (06:22→21:36)
[2018-08-22 06:27] LABS: Anion Gap 13 mmol/L (10-20); BUN (Urea Nitrogen) 8 mg/dL (9.8-20.1); Calc. Creatinine Clearance 77 mL/min (70-130); Calcium 9.6 mg/dL (7.8-10.44); Carbon Dioxide 25 mmol/L (23-31); Chloride 98 mmol/L (98-107); Estimated GFR-MDRD 61; Glucose 242 mg/dL (83-110); Magnesium 1.5 mg/dL (1.6-2.6); Phosphorus 3.3 mg/dL (2.3-4.7); Potassium 4.4 mmol/L (3.5-5.1); Sodium 132 mmol/L (136-145)
[2018-08-22] MEDS ORDERED: Magnesium Sulfate 4 GM in Sodium Chloride 0.9% 250 ML 250 ML IVPB SCH (07:15)
[2018-08-22] MEDS ORDERED: PHOS-NAK 1 PKT PACK PO SCH (07:15)
[2018-08-22] MEDS: Senokot S 8.6-50 MG TAB PO SCH ×2 (08:17→21:03)
[2018-08-22] MEDS: Sulfameth/Trimethoprim DS 800-160mg TAB PO SCH ×2 (08:17→21:03)
[2018-08-22] MEDS: Hydrochlorothiazide 25 MG TAB PO SCH (08:18)
--- NOTE | 2018-08-22 08:21 | PQF ---
TAYKRYSTINA MEDINAMARVIN [id number] SURG A- [id number] CLINICAL DOCUMENTATION IMPROVEMENT CLARIFICATION FORM: ICD-10 Updated PLEASE DO AN ADDENDUM TO THE PROGRESS NOTE WITH ANY DOCUMENTATION UPDATES OR ADDITIONS AND CARRY THROUGH TO DC SUMMARY. THANK YOU. DATE: 08/22 ATTN: DR. MARVIN MEDINA Please exercise your independent, professional judgment in responding to the clarification form. Clinical indicators are provided on the bottom of this form for your review. Please check appropriate box(s): [ x ] UTI [ ] Contaminated urine specimen without UTI [ ] Other diagnosis [ ] Unable to determine In addition, please specify: Present on Admission (POA): [ x ] Yes [ ] No [ ] Unable to determine For continuity of documentation, please document condition throughout progress notes and discharge summary. Thank You. CLINICAL INDICATORS - SIGNS / SYMPTOMS / LABS URINALYSIS 08/20: POSITIVE NITRITE, SMALL LEUKOCYTE ESTERASE, WBC 11-20, 4+ BACTERIA RISKS: ABNORMAL URINALYSIS (08/20) TREATMENT: PO ANTIBIOTIC (BACTRIM DS 08/20 - PRESENT) IVF (NS 08/20 - 15) THANK YOU! Alanna (This form is maintained as a part of the permanent medical record) 2015 [employer] All Rights Reserved Alanna Hughes RN, BSN [email or web address] Office: [phone] [facility]
[2018-08-22] MEDS ORDERED: Midodrine HCl 5 MG TAB PO SCH (09:00)
[2018-08-22] MEDS: Insulin Glargine 15 UNITS in Pre-Filled Syringe 1 EACH SC SCH (10:01)
[2018-08-22] MEDS: metFORMIN 500 MG TAB PO SCH ×2 (10:01→16:36)
[2018-08-22] MEDS: Scopolamine 1.5 mg/72 hour Patch TD SCH (10:02)
[2018-08-22] MEDS ORDERED: Magnesium Oxide 400 MG TAB PO SCH (10:45)
--- NOTE | 2018-08-22 13:52 | PRG ---
DATE OF SERVICE: 08/22/2018 SUBJECTIVE: The patient was seen this morning sitting up in bed. Reported no acute events overnight. Family at bedside reported she had no additional loss of consciousness after her episode yesterday while standing with physical therapy. She reports pain is well controlled, and she is tolerating her regular diet. Blood glucose continues to be elevated today. She is back on her home metformin. She will receive Levemir today, and her insulin sliding scale was increased to aggressive. She was also seen by Dr. Calvo of EP, who also signed off. He did not find any etiology to her syncopal episodes. OBJECTIVE: VITAL SIGNS: Temperature 98.0, pulse 76, respirations 16, oxygen saturation 99% on room air, blood pressure 160/83. GENERAL: Elderly female, sitting up in bed, with no signs of acute distress. CARDIAC: Regular rate and rhythm. No murmurs, gallops, or rubs. PULMONARY: Equal chest rise and fall. Clear breath sounds bilaterally. No signs of acute respiratory distress. GASTROINTESTINAL: Abdomen is soft, nontender, and nondistended. EXTREMITIES: 2+ pulses in all extremities. No significant swelling noted. Gross motor and sensation are intact. NEUROLOGIC: GCS is 15. Gross motor and sensation are intact. Pupils equal, round, and reactive to light bilaterally. LABORATORY FINDINGS: Sodium 132, potassium 4.4, chloride 98, carbon dioxide 25, BUN 8, creatinine 0.90, glucose 242. Potassium 3.3. Magnesium 1.5. DIAGNOSTIC FINDINGS: There are no new diagnostic findings to report. ASSESSMENT: 1. Status post mechanical fall, possible syncopal episode. 2. Small subdural hematoma. 3. Urinary tract infection. 4. Apparent syncopal-like episodes. 5. History of diabetes and hypertension. PLAN: Continue current pain and diet regimen. We will make tramadol p.r.n. The patient is on her home metoprolol and Levemir 15 daily, which is to start today. We will increase sliding scale to aggressive and closely monitor the patient's blood glucose levels with q.4 hours checks. We will replace phosphorus and magnesium as well today. Continue Bactrim for UTI. EP saw the patient and reported they had no etiology for the syncopal-type episodes. Neurology, Dr. Jones is to see the patient today and do a formal evaluation and give formal recommendations for further rule out of narcolepsy or seizures. The patient is pending placement at rehab. The patient was seen and examined by Dr. Ferrell and myself this morning during rounds. Job ID: [id number]
[2018-08-22] MEDS: Atorvastatin Calcium 20 MG TAB PO SCH (21:03)
[2018-08-22] MEDS: Magnesium Oxide 400 MG TAB PO SCH (21:03)
--- NOTE | 2018-08-22 21:42 | CON ---
DATE OF CONSULTATION: 08/22/2018 CONSULT PHYSICIANS: Trauma Service. IMPRESSION: 1. Pseudosyncopal episodes. 2. Recent traumatic subdural hematoma. PLAN: The patient can be discharged to rehab. HISTORY OF PRESENT ILLNESS: Ms. Valdivia is a 77-year-old female, who came in for a traumatic subarachnoid hemorrhage. Since admission, her daughters report that she had several syncopal like episodes. They actually reported one that when they rolled her over in bed, she reportedly blacked out. They attempted to bring her to a standing position and she would suddenly appear to lose consciousness and fall backward. Her blood pressure during the lying and sitting face were stable. They were unable to document an orthostatic blood pressure until today. They did get her up today and along with physical therapy, there was no significant orthostatic drop in blood pressure and she remained pretty much asymptomatic. She also has had an echocardiogram, which showed a 55% to 60% ejection fraction. CT angiogram of the head was normal. Carotid ultrasound was clear. Cardiology has seen her and signed off the case. PAST MEDICAL HISTORY: Diabetes, depression. ALLERGIES: NONE. SOCIAL HISTORY: No tobacco or alcohol. FAMILY HISTORY: Noncontributory. REVIEW OF SYSTEMS: Ten system review of systems is otherwise negative. PHYSICAL EXAMINATION: GENERAL: She is a slightly overweight elderly woman, in no acute distress. VITAL SIGNS: Reviewed. HEENT: Pupils are equal and reactive, conjunctivae clear. Oropharynx clear. NECK: Supple. NEUROLOGIC: She is alert and conversant. Her speech is fluent and clear. Cranial nerves are intact. Motor exam shows equal strength. Sensation is equal to touch. No abnormal movements were seen. IMAGING PROCEDURE: EKG shows sinus rhythm. SUMMARY: This is a 77-year-old woman with some bizarre syncopal like episodes and she struck her head and developed a subarachnoid hemorrhage. They do not appear consistent with seizures. She seems to be settling down and has not had an episode today. She is scheduled for rehab transfer that I would appear appropriate at this point. Job ID: [id number]
[2018-08-23] MEDS: Acetaminophen 325 MG TAB PO SCH ×4 (03:10→19:48)
[2018-08-23] MEDS: Levothyroxine Sodium 50 MCG TAB PO SCH (05:37)
[2018-08-23] MEDS: HumaLOG 300 UNITS/3 ML VIAL SC PRN ×3 (06:52→17:55)
[2018-08-23 07:35] LABS: #Basophils 0.1 thou/uL (0.0-0.2); #Eosinphils 0.2 thou/uL (0.0-0.7); #Lymphocytes 1.8 thou/uL (1.20-3.40); #Monocytes 0.5 thou/uL (0.11-0.59); #Neutrophils 4.1 thou/uL (1.40-6.50); %Basophils 0.8 % (0.0-1.0); %Eosinophils 2.6 % (0.0-10.0); %Lymphocytes 27.4 % (21.0-51.0); %Monocytes 7.2 % (0.0-10.0); %Neutrophils 62.1 % (42.0-75.0); Hemoglobin 12.4 g/dL (12.0-16.0); Mean Corpuscular HGB CONC 33.2 g/dL (32.0-36.0); Mean Corpuscular Hemoglobin 32.3 pg (27.0-31.0); Mean Corpuscular Volume 97.4 fL (78.0-98.0); Mean Platelet Volume 7.7 fL (7.4-10.4); Platelet Count 169 thou/uL (130-400); Red Blood Cell (RBC) Count 3.85 mill/uL (4.20-5.40); White Blood Cell (WBC) Count 6.5 thou/uL (4.8-10.8)
[2018-08-23 07:57] LABS: Anion Gap 14 mmol/L (10-20); BUN (Urea Nitrogen) 9 mg/dL (9.8-20.1); Calc. Creatinine Clearance 77 mL/min (70-130); Calcium 9.8 mg/dL (7.8-10.44); Carbon Dioxide 24 mmol/L (23-31); Chloride 97 mmol/L (98-107); Estimated GFR-MDRD 61; Glucose 217 mg/dL (83-110); Magnesium 1.6 mg/dL (1.6-2.6); Phosphorus 3.5 mg/dL (2.3-4.7); Potassium 4.3 mmol/L (3.5-5.1); Sodium 131 mmol/L (136-145)
[2018-08-23] MEDS: metFORMIN 500 MG TAB PO SCH ×2 (08:51→17:55)
[2018-08-23] MEDS: Hydrochlorothiazide 25 MG TAB PO SCH (08:51)
[2018-08-23] MEDS: Magnesium Oxide 400 MG TAB PO SCH ×2 (08:53→19:49)
[2018-08-23] MEDS: Senokot S 8.6-50 MG TAB PO SCH ×2 (08:53→19:49)
[2018-08-23] MEDS: Insulin Glargine 15 UNITS in Pre-Filled Syringe 1 EACH SC SCH (08:53)
[2018-08-23] MEDS: Sulfameth/Trimethoprim DS 800-160mg TAB PO SCH ×2 (08:53→19:49)
--- NOTE | 2018-08-23 15:40 | PRG ---
DATE OF SERVICE: 08/23/2018 SUBJECTIVE: The patient was seen this morning, sitting up at edge of bed with no signs of acute distress. She reported she slept well overnight and pain is well controlled. She has not had any syncopal-type episodes for greater than the past 24 hours. She has been tolerating her diet and was able to work with Physical Therapy yesterday. OBJECTIVE: VITAL SIGNS: Temperature 98.4, pulse 83, respirations 16, oxygen saturation 95% on room air, blood pressure 142/72. GENERAL: Well-appearing elderly female, sitting up at edge of bed with no signs of acute distress. CARDIAC: Regular rate and rhythm. No murmurs, gallops, or rubs. PULMONARY: Equal chest rise and fall. Clear breath sounds bilaterally. No signs of acute respiratory distress. GI: Abdomen is soft, nontender, nondistended. EXTREMITIES: 2+ pulses in all extremities. No significant swelling noted. Gross motor and sensation are intact. NEURO: GCS is 15. Gross motor and sensation are intact. Pupils equal, round, reactive to light bilaterally. LABORATORY FINDINGS: White count 6.5, hemoglobin 12.4, hematocrit 37.5, platelets 169. Sodium 131, potassium 4.3, chloride 95, carbon dioxide 24, BUN 9, creatinine 0.90, phos 3.5, magnesium 1.6. DIAGNOSTIC FINDINGS: There are no new diagnostic findings to report. ASSESSMENT: 1. Status post mechanical fall with possible syncopal episode. 2. Small subdural hematoma. 3. Urinary tract infection, uncomplicated. 4. Apparent syncopal-like episodes. 5. History of diabetes and hypertension. 6. Acute hyponatremia. PLAN: Continue current pain and diet regimen. We will start her home metoprolol today, increase Lantus to 25 daily with additional metformin and aggressive sliding scale. Neurology saw the patient and could not find additional etiology for syncopal episodes and recommended the patient is ready for discharge to rehab. The patient is pending insurance approval for placement at a rehab facility. We will free water restrict the patient to 1.5 L. Family reported the patient was taking in a lot more water over the past couple of days and her sodium did drop a little bit. The patient was seen and discussed with Dr. Ferrell and myself this morning during rounds. Job ID: [id number]
[2018-08-23] MEDS: Atorvastatin Calcium 20 MG TAB PO SCH (19:49)
[2018-08-24] MEDS: Acetaminophen 325 MG TAB PO SCH ×4 (02:49→20:38)
[2018-08-24] MEDS: Levothyroxine Sodium 50 MCG TAB PO SCH (06:00)
[2018-08-24 06:57] LABS: #Eosinphils 0.3 thou/uL (0.0-0.7); #Monocytes 0.5 thou/uL (0.11-0.59); #Neutrophils 3.4 thou/uL (1.40-6.50); %Basophils 0.4 % (0.0-1.0); %Eosinophils 5.5 % (0.0-10.0); %Lymphocytes 32.7 % (21.0-51.0); %Monocytes 7.8 % (0.0-10.0); %Neutrophils 53.6 % (42.0-75.0); Mean Corpuscular HGB CONC 31.7 g/dL (32.0-36.0); Mean Corpuscular Volume 97.7 fL (78.0-98.0); Mean Platelet Volume 7.3 fL (7.4-10.4); Platelet Count 217 thou/uL (130-400); Red Blood Cell (RBC) Count 4.18 mill/uL (4.20-5.40); White Blood Cell (WBC) Count 6.3 thou/uL (4.8-10.8)
[2018-08-24 07:06] LABS: Anion Gap 14 mmol/L (10-20); BUN (Urea Nitrogen) 11 mg/dL (9.8-20.1); Calc. Creatinine Clearance 68 mL/min (70-130); Calcium 9.9 mg/dL (7.8-10.44); Carbon Dioxide 24 mmol/L (23-31); Chloride 98 mmol/L (98-107); Estimated GFR-MDRD 53; Glucose 223 mg/dL (83-110); Magnesium 1.8 mg/dL (1.6-2.6); Phosphorus 3.7 mg/dL (2.3-4.7); Potassium 4.4 mmol/L (3.5-5.1); Sodium 132 mmol/L (136-145)
[2018-08-24] MEDS: HumaLOG 300 UNITS/3 ML VIAL SC PRN ×3 (07:44→20:38)
[2018-08-24] MEDS: metFORMIN 500 MG TAB PO SCH ×2 (07:45→18:29)
[2018-08-24] MEDS: Sulfameth/Trimethoprim DS 800-160mg TAB PO SCH ×2 (07:45→20:38)
[2018-08-24] MEDS: Magnesium Oxide 400 MG TAB PO SCH ×2 (07:45→20:38)
[2018-08-24] MEDS: Hydrochlorothiazide 25 MG TAB PO SCH (07:47)
[2018-08-24] MEDS: Senokot S 8.6-50 MG TAB PO SCH ×2 (08:03→22:06)
[2018-08-24] MEDS: Insulin Glargine 20 UNITS in Pre-Filled Syringe 1 EACH SC SCH (08:46)
--- NOTE | 2018-08-24 18:03 | PRG ---
DATE OF SERVICE: 08/24/2018 SUBJECTIVE: The patient was seen this morning, sitting up in bed with no signs of acute distress. She reports she slept well overnight and pain is well controlled. She has had no other reported syncopal type episodes for the past 48 hours or more. She is tolerating a regular diet. She is working with physical therapy. Nursing does report that the patient has had several loose bowel movements over the past 24 hours. OBJECTIVE: VITAL SIGNS: Temperature 98.0, pulse 68, respirations 14, oxygen saturation 93% on room air, blood pressure 160/86. GENERAL: Well-appearing elderly female, sitting up in bed with no signs of acute distress. PULMONARY: Equal chest rise and fall. Clear breath sounds bilaterally. No signs of acute respiratory distress. CARDIAC: Regular rate and rhythm. No murmurs, gallops, or rubs. GI: Abdomen is soft, nontender, and nondistended. EXTREMITIES: 2+ pulses in all extremities. No significant swelling noted. NEURO: GCS is 15. Gross motor and sensation are intact. Pupils are equal, round, and reactive to light bilaterally. No focal neurological deficits. LABORATORY FINDINGS: White count 6.3, hemoglobin 13.0, hematocrit 40.9, platelets 217. Sodium 132, potassium 4.4, chloride 98, carbon dioxide 24, BUN 11, creatinine 1.01, glucose 223, phosphorus 3.7, magnesium 1.8. DIAGNOSTIC FINDINGS: There are no new diagnostic findings to discuss. ASSESSMENT: 1. Status post mechanical fall with possible syncopal episode. 2. Small subdural hematoma. 3. Urinary tract infection, uncomplicated. 4. Apparent syncopal like episodes, resolved. 5. History of diabetes and hypertension. 6. Acute hyponatremia. PLAN: Continue current diet and pain regimen. Continue free water restriction to 1.5 L. We will send a C diff today, she has had multiple bowel movements in the past 24 hours. She is still pending placement at a rehab facility. We are pending insurance approval at this time. She will in the meantime, continue to work with Physical and Occupational Therapy. The patient was seen and examined by Dr. Ferrell and myself this morning during rounds. Job ID: [id number]
[2018-08-24] MEDS: Atorvastatin Calcium 20 MG TAB PO SCH (20:38)
[2018-08-25] MEDS: Acetaminophen 325 MG TAB PO SCH ×4 (02:29→20:16)
[2018-08-25 05:18] LABS: Anion Gap 14 mmol/L (10-20); BUN (Urea Nitrogen) 12 mg/dL (9.8-20.1); Calc. Creatinine Clearance 67 mL/min (70-130); Calcium 9.9 mg/dL (7.8-10.44); Carbon Dioxide 24 mmol/L (23-31); Chloride 97 mmol/L (98-107); Estimated GFR-MDRD 52; Glucose 162 mg/dL (83-110); Magnesium 1.6 mg/dL (1.6-2.6); Phosphorus 4.1 mg/dL (2.3-4.7); Potassium 3.9 mmol/L (3.5-5.1); Sodium 131 mmol/L (136-145)
[2018-08-25] MEDS: Levothyroxine Sodium 50 MCG TAB PO SCH (05:56)
[2018-08-25] MEDS: HumaLOG 300 UNITS/3 ML VIAL SC PRN ×2 (05:57→11:58)
[2018-08-25] MEDS ORDERED: Magnesium 2 GM/50 ML 2 GM in Premix Bag 1 BAG IVPB SCH (07:45)
[2018-08-25] MEDS: Scopolamine 1.5 mg/72 hour Patch TD SCH (10:17)
[2018-08-25] MEDS: Sodium Chloride 1 GM TAB PO SCH ×2 (10:17→20:48)
[2018-08-25] MEDS: metFORMIN 500 MG TAB PO SCH ×2 (10:18→15:51)
[2018-08-25] MEDS: Hydrochlorothiazide 25 MG TAB PO SCH (10:18)
[2018-08-25] MEDS: Magnesium Oxide 400 MG TAB PO SCH ×2 (10:18→20:16)
[2018-08-25] MEDS: Sulfameth/Trimethoprim DS 800-160mg TAB PO SCH (10:18)
[2018-08-25] MEDS: Insulin Glargine 20 UNITS in Pre-Filled Syringe 1 EACH SC SCH (10:19)
[2018-08-25] MEDS: Escitalopram Oxalate 20 mg Tablet PO SCH (11:56)
[2018-08-25 13:13] LABS: Bilirubin Negative (Negative); Blood, Urine Negative (Negative); Clarity Clear (Clear); Glucose, Urine (Dipstick) 50 mg/dL (Negative); Leukocyte 500 Leu/uL (Negative); Nitrite Negative (Negative); Protein, Urine (Dipstick) Negative (Neg-Trace); RBC/HPF 0-3 HPF (0-3); Squamous Epithelial 0-3 HPF (0-3); Urobilinogen Normal mg/dL (Less than 2); WBC/HPF 21-50 HPF (0-3)
[2018-08-25 13:15] LABS: Bacteria/HPF 1+ HPF (None Seen)
[2018-08-25 13:16] LABS: Urine Culture Reflex Yes Yes
[2018-08-25] MEDS ORDERED: Loperamide HCl 2 MG CAP PO PRN (14:48)
--- NOTE | 2018-08-25 15:24 | PRG ---
DATE OF SERVICE: 08/25/2018 SUBJECTIVE: The patient was seen this afternoon, lying in bed. Nursing at bedside cleaning the patient. She has had mild multiple bouts of bowel movements yesterday and day before. She had been given an aggressive bowel regimen because she was having difficulties. C diff had been sent, which is negative. At the time of my evaluation, she complained of pelvic pain. She does have urinary tract infection, for which, she was to complete 5-day course of Bactrim. She has not been having difficulty urinating, but reports a burning sensation in her pelvis. I did ask the nurses to I and O catheter and completely drain her bladder and send the UA and urine culture from that specimen. Otherwise, she had no acute events overnight. Blood pressure is elevated overnight and we will make further blood pressure medication adjustments. PHYSICAL EXAMINATION: VITAL SIGNS: Temperature 97.9, pulse 71, respirations 16, oxygen saturation 96% on room air, and blood pressure 145/83. GENERAL: Elderly female, lying in bed with some mild distress, reporting pelvic burning and pain. PULMONARY: Equal chest rise and fall. Clear breath sounds bilaterally. No signs of acute respiratory distress. CARDIAC: Regular rate and rhythm. No murmurs, gallops, or rubs. GI: Abdomen is soft, nontender, and nondistended. There is some pelvic tenderness. EXTREMITIES: 2+ pulses in all extremities. No significant swelling noted. NEUROLOGIC: GCS is 15. Gross motor and sensation are intact. Pupils are equal, round, reactive to light bilaterally. LABORATORY FINDINGS: Sodium 131, potassium 3.9, chloride 93, carbon dioxide 24, BUN 12, creatinine 1.03, glucose 162, phosphorus 4.1, magnesium 1.8. UA is positive. Urine culture is pending. DIAGNOSTIC FINDINGS: There are no new diagnostic findings to report. ASSESSMENT: 1. Status post mechanical fall with possible syncopal episode. 2. Subdural hematoma. 3. Urinary tract infection, uncomplicated. 4. Syncopal type episodes, resolved. 5. History of diabetes and hypertension. 6. Hyponatremia, worsening today. 7. Hypomagnesemia. PLAN: The patient was started on lisinopril 10 mg at night. She becomes hypertensive overnight. We will continue to monitor that tonight. UA was sent, which was still positive after 5 days of Bactrim. The patient is having symptoms now and so, she will be started on Cipro b.i.d. for 7 days. We will also follow up the culture. She will continue with a free water restriction for her hyponatremia and we will start her on sodium chloride tablets 1 g b.i.d. The patient's C diff was negative and her bowel regimen was stopped. We will also start her on Florastor and Imodium p.r.n. for diarrhea. The patient is pending placement at acute rehab. She is ready for discharge at this time. We will continue to monitor her pelvic symptoms closely. The patient was discussed with Dr. Ferrell after rounds. Job ID: [id number]
[2018-08-25] MEDS ORDERED: Phenazopyridine HCl 97.5 MG TABLET PO SCH ×2 (15:45→18:00)
[2018-08-25] MEDS: Saccharomyces boulardii 250 MG CAP PO SCH (15:51)
[2018-08-25] MEDS: Lisinopril 10 MG TAB PO SCH (20:16)
[2018-08-25] MEDS: Cipro 250 MG TAB PO SCH (20:16)
[2018-08-25] MEDS: Atorvastatin Calcium 20 MG TAB PO SCH (20:16)
[2018-08-26] MEDS: traMADol HCl 50 MG TAB PO PRN ×2 (01:17→07:03)
[2018-08-26] MEDS: Acetaminophen 325 MG TAB PO SCH ×4 (01:17→20:20)
[2018-08-26] MEDS: Cipro 250 MG TAB PO SCH ×2 (05:38→20:20)
[2018-08-26] MEDS: Levothyroxine Sodium 50 MCG TAB PO SCH (05:38)
[2018-08-26 06:03] LABS: Anion Gap 11 mmol/L (10-20); BUN (Urea Nitrogen) 14 mg/dL (9.8-20.1); Calc. Creatinine Clearance 64 mL/min (70-130); Calcium 9.9 mg/dL (7.8-10.44); Carbon Dioxide 27 mmol/L (23-31); Chloride 96 mmol/L (98-107); Estimated GFR-MDRD 49; Glucose 190 mg/dL (83-110); Magnesium 1.7 mg/dL (1.6-2.6); Phosphorus 4.1 mg/dL (2.3-4.7); Potassium 4.9 mmol/L (3.5-5.1); Sodium 129 mmol/L (136-145)
[2018-08-26] MEDS: Saccharomyces boulardii 250 MG CAP PO SCH (08:30)
[2018-08-26] MEDS: Escitalopram Oxalate 20 mg Tablet PO SCH (08:30)
[2018-08-26] MEDS: Hydrochlorothiazide 25 MG TAB PO SCH (08:30)
[2018-08-26] MEDS: Magnesium Oxide 400 MG TAB PO SCH ×2 (08:31→20:20)
[2018-08-26] MEDS: metFORMIN 500 MG TAB PO SCH ×2 (08:31→17:25)
[2018-08-26] MEDS: Sodium Chloride 1 GM TAB PO SCH ×3 (08:33→20:21)
[2018-08-26] MEDS: Insulin Glargine 20 UNITS in Pre-Filled Syringe 1 EACH SC SCH (09:56)
[2018-08-26] MEDS ORDERED: Phenazopyridine HCl 97.5 MG TABLET PO SCH (11:00)
[2018-08-26] MEDS ORDERED: Cyclobenzaprine 10 MG TAB PO PRN (12:25)
[2018-08-26] MEDS ORDERED: Cyclobenzaprine 10 MG TAB PO SCH (12:30)
[2018-08-26] MEDS: Phenazopyridine HCl 97.5 MG TABLET PO SCH ×2 (14:20→20:20)
--- NOTE | 2018-08-26 14:51 | PRG ---
DATE OF SERVICE: 08/26/2018 SUBJECTIVE: The patient was seen this morning lying in bed. Reported some persistent pelvic spasm like pains. The patient has a UTI currently, reported that Azo had not worked for her previously. She also reported she was tolerating a diet and is fluid free, water restricted, and has been drinking more Gatorade. She worked with Physical and Occupational Therapy in the bed, but was not able to get up secondary to pelvic pain. OBJECTIVE: VITAL SIGNS: Temperature 98.4, pulse 61, respirations 16, oxygen saturation 93% on room air, blood pressure 124/62. GENERAL: Elderly female, lying in bed with some minimal distress. Reported pelvic burning type pain. PULMONARY: Equal chest rise and fall. Clear breath sounds bilaterally. No signs of acute respiratory distress. CARDIAC: Regular rate and rhythm. No murmurs, gallops, or rubs. GI: Abdomen is soft, nontender, nondistended. There is some pelvic tenderness. EXTREMITIES: 2+ pulses in all extremities. No significant swelling noted. NEURO: GCS is 15. Gross motor and sensation are intact. Pupils equal, round, reactive to light bilaterally. LABORATORY FINDINGS: Sodium 129, potassium 4.5, chloride 96, carbon dioxide 27, BUN 14, creatinine 1.08, glucose is 190, phosphorus is 4.1, magnesium is 1.7. DIAGNOSTIC FINDINGS: There are no new diagnostic findings to report. ASSESSMENT: 1. Status post mechanical fall with possible syncopal episode. 2. Subdural hematoma. 3. Urinary tract infection, persistent. 4. Syncopal like episodes, unclear etiology. 5. History of diabetes and hypertension. 6. Hyponatremia. 7. Hypomagnesemia. PLAN: It appears that the patient's blood pressure was improved after starting lisinopril 10 mg last night. The patient previously was having multiple bowel movements a day. C. diff was negative, and Imodium was started. We will discontinue the Imodium today as the patient states she has not had a bowel movement. To encourage the patient to have regular bowel movements, we will encourage her to walk more. For pain control and spasms, we will give the patient a small dose of Flexeril and reassess and possibly offer it to her again if she is not feeling too weird. We will [id number] the patient to 1 L and increase her sodium tablets to t.i.d. We will continue Cipro for 7 days for her urinary tract infection. Sensitivities are pending at this time. Preliminary read for the culture shows gram-negative rods. We will replace the magnesium with oral magnesium as she does not have IV at this time. The patient has been approved by insurance to go to acute rehab. We are pending bed availability at rehab, and it is likely that she can be discharged on Tuesday. The patient will be discussed with Dr. Ferrell after this dictation. Job ID: [id number]
[2018-08-26] MEDS: Lisinopril 10 MG TAB PO SCH (20:20)
[2018-08-26] MEDS: Atorvastatin Calcium 20 MG TAB PO SCH (20:21)
[2018-08-26] MEDS: Methocarbamol 500 MG TAB PO PRN (22:16)
[2018-08-26] MEDS ORDERED: Loperamide HCl 2 MG CAP PO SCH (23:15)
[2018-08-27] MEDS: Acetaminophen 325 MG TAB PO SCH ×4 (02:06→20:31)
[2018-08-27] MEDS: traMADol HCl 50 MG TAB PO PRN (05:14)
[2018-08-27] MEDS: Levothyroxine Sodium 50 MCG TAB PO SCH (05:14)
[2018-08-27 05:16] LABS: Anion Gap 12 mmol/L (10-20); BUN (Urea Nitrogen) 14 mg/dL (9.8-20.1); Calc. Creatinine Clearance 79 mL/min (70-130); Calcium 9.3 mg/dL (7.8-10.44); Carbon Dioxide 21 mmol/L (23-31); Chloride 99 mmol/L (98-107); Estimated GFR-MDRD 63; Glucose 169 mg/dL (83-110); Magnesium 1.8 mg/dL (1.6-2.6); Phosphorus 3.7 mg/dL (2.3-4.7); Sodium 128 mmol/L (136-145)
[2018-08-27] MEDS: Cipro 250 MG TAB PO SCH ×2 (05:18→20:32)
[2018-08-27 06:03] LABS: Band 2 % (5-11); Eosinophils 2 % (0-10); Hemoglobin 12.3 g/dL (12.0-16.0); Lymphocytes 29 % (21-51); MDiff Complete? YES; Mean Corpuscular Hemoglobin 31.3 pg (27.0-31.0); Mean Corpuscular Volume 97.9 fL (78.0-98.0); Mean Platelet Volume 6.9 fL (7.4-10.4); Monocytes 9 % (0-10); Neutrophil 57 % (42-75); Platelet Count 226 thou/uL (130-400); Platelet Morphology Comment Appears Adequate; RBC Distribution Width 13.7 % (11.5-14.5); Reactive Lymphocytes 1 % (0-10); Red Blood Cell (RBC) Count 3.93 mill/uL (4.20-5.40); White Blood Cell (WBC) Count 6.7 thou/uL (4.8-10.8)
[2018-08-27] MEDS: Insulin Glargine 20 UNITS in Pre-Filled Syringe 1 EACH SC SCH (10:02)
[2018-08-27] MEDS: Phenazopyridine HCl 97.5 MG TABLET PO SCH ×3 (10:03→20:31)
[2018-08-27] MEDS: Saccharomyces boulardii 250 MG CAP PO SCH (10:03)
[2018-08-27] MEDS: Sodium Chloride 1 GM TAB PO SCH ×3 (10:03→20:31)
[2018-08-27] MEDS: metFORMIN 500 MG TAB PO SCH ×2 (10:03→15:59)
[2018-08-27] MEDS: Magnesium Oxide 400 MG TAB PO SCH ×2 (10:03→20:31)
[2018-08-27] MEDS: Lisinopril 10 MG TAB PO SCH ×2 (10:04→20:31)
[2018-08-27] MEDS: Escitalopram Oxalate 20 mg Tablet PO SCH (10:04)
[2018-08-27] MEDS: Methocarbamol 500 MG TAB PO PRN ×2 (15:08→20:32)
--- NOTE | 2018-08-27 15:31 | PRG ---
DATE OF SERVICE: 08/27/2018 SUBJECTIVE: The patient was seen this morning, lying in bed and reported that her pelvic pain and spasms have improved significantly from yesterday, also her burning with urination has also improved. She is tolerating her diet and is fluid restricted. She is continuing to work with Physical and Occupational Therapy and looks much better today than yesterday. OBJECTIVE: VITAL SIGNS: Temperature 98.2, pulse 64, respirations 16, oxygen saturation 94% on room air, and blood pressure 126/84. GENERAL: Well-appearing elderly female, sitting up in bed with no signs of acute distress. PULMONARY: Equal chest rise and fall, clear breath sounds bilaterally. No signs of acute respiratory distress. CARDIAC: Regular rate and rhythm. No murmurs, gallops, or rubs. GI: Abdomen is soft, nontender, and nondistended. Pelvic pain has improved. EXTREMITIES: 2+ pulses in all extremities. No significant swelling noted. NEUROLOGIC: GCS is 15. Gross motor and sensation are intact. Pupils are equal, round, and reactive to light bilaterally. LABORATORY FINDINGS: White count 6.7, hemoglobin 12.8, hematocrit 38.4, platelets 226. Sodium 128, potassium 4.0, chloride 99, BUN 14, creatinine 0.87, glucose 169, phosphorus 3.7, magnesium 1.8. DIAGNOSTIC FINDINGS: There are no new diagnostic findings to report. ASSESSMENT: 1. Status post mechanical fall with possible syncopal episode. 2. Subdural hematoma. 3. Urinary tract infection, persistent. 4. Syncope-like episodes, unclear etiology. 5. History of diabetes and hypertension. 6. Hyponatremia. 7. Hypomagnesemia. PLAN: The patient continues to become hyponatremic with a sodium of 128. We have tried fluid restriction and increasing sodium chloride tabs. We will discontinue the patient's home hydrochlorothiazide as it can cause some hyponatremia, and make the patient's lisinopril b.i.d. for blood pressure control. We will continue to monitor this overnight. Urine culture demonstrated E coli, sensitive to Cipro. We will continue the Cipro. Continue oral magnesium replacements. Discontinue Imodium as the patient is having normal bowel movements. Continue Robaxin as it is providing good pain control at this time. Continue working with Physical and Occupational Therapy. The patient has been approved for rehab and is waiting for a bed. It is likely that she will be discharged tomorrow. The patient was discussed with Dr. Ferrell before this dictation. Job ID: [id number]
[2018-08-27] MEDS: HumaLOG 300 UNITS/3 ML VIAL SC PRN ×2 (16:33→21:57)
[2018-08-27] MEDS: Atorvastatin Calcium 20 MG TAB PO SCH (20:31)
[2018-08-28] MEDS: Acetaminophen 325 MG TAB PO SCH ×3 (03:12→15:17)
[2018-08-28 05:23] LABS: #Basophils 0.1 thou/uL (0.0-0.2); #Eosinphils 0.2 thou/uL (0.0-0.7); #Lymphocytes 2.7 thou/uL (1.20-3.40); #Monocytes 0.5 thou/uL (0.11-0.59); %Basophils 0.8 % (0.0-1.0); %Eosinophils 2.1 % (0.0-10.0); %Lymphocytes 35.9 % (21.0-51.0); %Monocytes 7.1 % (0.0-10.0); %Neutrophils 54.1 % (42.0-75.0); Hemoglobin 12.3 g/dL (12.0-16.0); Mean Corpuscular HGB CONC 31.6 g/dL (32.0-36.0); Mean Corpuscular Hemoglobin 31.2 pg (27.0-31.0); Mean Corpuscular Volume 98.8 fL (78.0-98.0); Platelet Count 234 thou/uL (130-400); Red Blood Cell (RBC) Count 3.93 mill/uL (4.20-5.40); White Blood Cell (WBC) Count 7.4 thou/uL (4.8-10.8)
[2018-08-28 05:39] LABS: Anion Gap 12 mmol/L (10-20); BUN (Urea Nitrogen) 16 mg/dL (9.8-20.1); Calc. Creatinine Clearance 73 mL/min (70-130); Calcium 9.9 mg/dL (7.8-10.44); Carbon Dioxide 26 mmol/L (23-31); Chloride 101 mmol/L (98-107); Estimated GFR-MDRD 58; Glucose 173 mg/dL (83-110); Magnesium 1.9 mg/dL (1.6-2.6); Phosphorus 3.6 mg/dL (2.3-4.7); Potassium 4.8 mmol/L (3.5-5.1); Sodium 134 mmol/L (136-145)
[2018-08-28] MEDS: Levothyroxine Sodium 50 MCG TAB PO SCH (05:49)
[2018-08-28] MEDS: Methocarbamol 500 MG TAB PO PRN (05:49)
[2018-08-28] MEDS: Cipro 250 MG TAB PO SCH (05:49)
[2018-08-28] MEDS: Saccharomyces boulardii 250 MG CAP PO SCH (09:03)
[2018-08-28] MEDS: Insulin Glargine 20 UNITS in Pre-Filled Syringe 1 EACH SC SCH (09:03)
[2018-08-28] MEDS: Magnesium Oxide 400 MG TAB PO SCH (09:05)
[2018-08-28] MEDS: Lisinopril 10 MG TAB PO SCH (09:05)
[2018-08-28] MEDS: metFORMIN 500 MG TAB PO SCH ×2 (09:05→16:37)
[2018-08-28] MEDS: Phenazopyridine HCl 97.5 MG TABLET PO SCH ×2 (09:06→15:14)
[2018-08-28] MEDS: Escitalopram Oxalate 20 mg Tablet PO SCH (09:06)
[2018-08-28] MEDS: Sodium Chloride 1 GM TAB PO SCH ×2 (09:07→15:14)
[2018-08-28] MEDS: Scopolamine 1.5 mg/72 hour Patch TD SCH (09:07)
[2018-08-28] MEDS: HumaLOG 300 UNITS/3 ML VIAL SC PRN (12:53)
[2018-08-28 15:26] VITALS: BP 162/77; TEMP 98.1
--- NOTE | 2018-08-29 08:59 | DIS ---
DATE OF ADMISSION: 08/18/2018 DATE OF DISCHARGE: 08/28/2018 ADMISSION DIAGNOSES: 1. Mechanical fall from standing. 2. Subdural hematoma with 2-mm midline shift. 3. Pseudo-syncope. 4. Urinary tract infection, uncomplicated. 5. Hyponatremia. DISCHARGE DIAGNOSES: 1. Mechanical fall from standing. 2. Subdural hematoma with 2-mm midline shift. 3. Pseudo-syncope. 4. Urinary tract infection, uncomplicated. 5. Hyponatremia. CONSULTING PHYSICIANS: 1. Dr. Red of Neurosurgery. 2. Dr. Barry of Cardiology. 3. Dr. Snyder of Electrophysiology. 4. Dr. Jones of Neurology. PROCEDURES: None. HOSPITAL COURSE: The patient is a 77-year-old female, who presented to the emergency department after a mechanical fall and suffered a subdural hematoma with 2-mm midline shift. She also developed syncope-like episodes and was evaluated by Cardiology, EP, and Neurology, which all reported that there were no signs of dysfunction and she was diagnosed with pseudoseizures. The patient also had a UTI at the time of admission, for which she was initially treated with Bactrim. Urinary tract infection persisted, and subsequently, she was changed to E coli for a total of 7-day course. Cultures and sensitivities were sent, which revealed Cipro was the appropriate antibiotic for the E coli urinary tract infection. The patient also suffered from persistent hyponatremia. After free water restriction and sodium tab treatment, the patient's hyponatremia persisted. She was on her home hydrochlorothiazide that was discontinued and she was started on lisinopril. Subsequently, her hyponatremia much improved. She was discharged to an acute rehab facility. DISCHARGE DISPOSITION: Acute rehab. DISCHARGE CONDITION: Satisfactory. PHYSICAL EXAMINATION: VITAL SIGNS: Temperature 98.2, pulse 60, respirations 14, oxygen saturation 97% on room air, and blood pressure 144/73. GENERAL: Well-appearing, elderly female, sitting up in bed with no signs of acute distress. PULMONARY: Equal chest rise and fall. Clear breath sounds bilaterally. No signs of acute respiratory distress. CARDIAC: Regular rate and rhythm. No murmurs, gallops, or rubs. GI: Abdomen is soft, nontender, nondistended. PELVIC: Pain has improved. EXTREMITIES: 2+ pulses in all extremities. No significant swelling noted. NEUROLOGIC: GCS is 15. Gross motor and sensation are intact. Pupils are equal, round, and reactive to light bilaterally. LABORATORY FINDINGS: White count 7.4, hemoglobin 12.3, hematocrit 38.8, platelets 284. Sodium is 134, potassium 4.8, chloride 101, carbon dioxide 26, BUN 16, creatinine 0.94, glucose 173, phosphorus 3.6, magnesium 1.9. DISCHARGE INSTRUCTIONS: The patient was discharged to acute rehab. She is activity as tolerated. Diabetic diet. She is on a free water restriction with close sodium followup. She is to receive physical and occupational therapy. Use incentive spirometry and a walker as needed. She is to not have home hydrochlorothiazide restarted for blood pressure management as it causes hyponatremia in this patient. DISCHARGE MEDICATIONS: Include; 1. Tylenol. 2. Atorvastatin. 3. Cipro for a total of 7 days. 4. Lexapro. 5. Levothyroxine. 6. Lisinopril. 7. Magnesium oxide. 8. Metformin. 9. Robaxin. 10. Metoprolol. 11. Azo. 12. MiraLAX. 13. Florastor. 14. Scopolamine patch. 15. Tramadol. 16. NovoLog. FOLLOWUP APPOINTMENTS: The patient is to follow up with Dr. Red in [address] weeks with a repeat CT scan. This is merely a summary of the patient's hospitalization. For full details, please see her medical record in its entirety. Job ID: [id number]
== END 2018-08-28 17:35 | DRG 86 ==
LOC: ERS 03:28 → IMCU/EMU 05:26 → SURG A 08-21 23:09
PROVIDERS: ADMIT Surgery; ATTEND Surgery
DX: S06.5X0A Traumatic subdural hemorrhage without loss of consciousness, initial encounter (principal); N39.0 Urinary tract infection, site not specified; E87.1 Hypo-osmolality and hyponatremia; I10 Essential (primary) hypertension; F17.210 Nicotine dependence, cigarettes, uncomplicated; W18.11XA Fall from or off toilet without subsequent striking against object, initial encounter; R40.2412 Glasgow coma scale score 13-15, at arrival to emergency department; F32.9 Major depressive disorder, single episode, unspecified; E83.42 Hypomagnesemia; Y92.012 Bathroom of single-family (private) house as the place of occurrence of the external cause; B96.20 Unspecified Escherichia coli [E. coli] as the cause of diseases classified elsewhere; Z90.49 Acquired absence of other specified parts of digestive tract; Z79.4 Long term (current) use of insulin
CPT/HCPCS: 36415; 36416; 70450; 70496; 70498; 71045; 72125; 80048; 80053; 81001; 81003; 81015; 82533; 83735; 84100; 84436; 84443; 84481; 84484; 85007; 85025; 85027; 85610; 85730; 87077; 87086; 87186; 87324; 87449; 93005; 93010; 93306; 93880; 96374; G0390; J0131; J1815; J1885; J2405; J3475; J7050; Q9966

== ENCOUNTER 2020-05-14 04:57 | Inpatient (IN) | payer MEDICARE ==
[2020-05-14] MEDS ORDERED: Ondansetron PF 4 MG/2 ML Vial ONE (05:13)
[2020-05-14 05:25] LABS: #Eosinphils 0.1 thou/uL (0.0-0.7); #Lymphocytes 2.2 thou/uL (1.20-3.40); #Monocytes 0.4 thou/uL (0.11-0.59); #Neutrophils 1.9 thou/uL (1.40-6.50); %Basophils 0.1 % (0.0-1.0); %Eosinophils 1.7 % (0.0-10.0); %Lymphocytes 47.6 % (21.0-51.0); %Monocytes 9.2 % (0.0-10.0); %Neutrophils 41.5 % (42.0-75.0); Hemoglobin 7.3 g/dL (12.0-16.0); Mean Corpuscular HGB CONC 31.9 g/dL (32.0-36.0); Mean Corpuscular Hemoglobin 30.1 pg (27.0-31.0); Mean Corpuscular Volume 94.5 fL (78.0-98.0); Mean Platelet Volume 7.5 fL (7.4-10.4); Platelet Count 166 thou/uL (130-400); RBC Distribution Width 15.6 % (11.5-14.5); Red Blood Cell (RBC) Count 2.41 mill/uL (4.20-5.40); White Blood Cell (WBC) Count 4.6 thou/uL (4.8-10.8)
[2020-05-14 05:56] LABS: ALT (SGPT) 18 U/L (8-55); AST (SGOT) 36 U/L (5-34); Alkaline Phosphatase 66 U/L (40-110); Anion Gap 16 mmol/L (10-20); BUN (Urea Nitrogen) 8 mg/dL (9.8-20.1); Bilirubin, Total 0.7 mg/dL (0.2-1.2); Calc. Creatinine Clearance 0 mL/min (70-130); Calcium 8.4 mg/dL (7.8-10.44); Carbon Dioxide 20 mmol/L (23-31); Chloride 108 mmol/L (98-107); Globulin 3.5 g/dL (2.4-3.5); Lipase 60 U/L (8-78); Potassium 3.9 mmol/L (3.5-5.1); Protein, Total 6.5 g/dL (5.8-8.1); Sodium 140 mmol/L (136-145)
[2020-05-14 06:07] LABS: Glucose 47 mg/dL (83-110)
[2020-05-14] MEDS ORDERED: Dextrose 50% Abboject 50 ML SYRINGE ONE (06:08)
[2020-05-14 06:12] LABS: Bilirubin Negative (Negative); Blood, Urine Negative (Negative); Clarity Turbid (Clear); Glucose, Urine (Dipstick) Normal (Negative); Ketone, Urine Negative (Negative); Leukocyte 500 Leu/uL (Negative); Nitrite 2+ (Negative); Protein, Urine (Dipstick) Negative (Neg-Trace); RBC/HPF 0-3 HPF (0-3); Specific Gravity, Urine 1.016 (1.002-1.036); Urobilinogen Normal mg/dL (Less than 2); WBC/HPF Greater than 50 HPF (0-3)
[2020-05-14 06:13] LABS: Bacteria/HPF 1+ HPF (None Seen)
[2020-05-14] MEDS ORDERED: cefTRIAXone\\ROCEPHIN 1 GM VIAL ONE (06:44)
[2020-05-14] MEDS ORDERED: Cefepime 2 GM VIAL ONE (07:45)
[2020-05-14] MEDS ORDERED: VANCOMYCIN 1.75 GM/350 ML BAG 1.75 GM in Premix Bag 1 BAG IVPB SCH (07:45)
[2020-05-14 07:46] LABS: INR-International Normal Ratio 1.2; PTT 31.4 sec (22.9-36.1); Prothrombin Time 15.6 sec (12.0-14.7)
[2020-05-14] MEDS ORDERED: Dextrose 5% in Water 1,000 ML IV PRN (09:17)
[2020-05-14] MEDS ORDERED: Acetaminophen 325 MG TAB PO PRN (09:17)
[2020-05-14] MEDS ORDERED: HYDROcodone/Acetaminophen 5/325 mg Tablet PO PRN (09:17)
[2020-05-14] MEDS ORDERED: Bisacodyl 10 MG SUPP PR PRN (09:17)
[2020-05-14] MEDS ORDERED: Guaifenesin DM 100-10/5 ML UDCUP PO PRN (09:17)
[2020-05-14] MEDS ORDERED: Dextrose 50% Abboject 50 ML SYRINGE SLOW IVP PRN (09:17)
[2020-05-14] MEDS ORDERED: Loperamide HCl 2 MG CAP PO PRN (09:17)
[2020-05-14] MEDS ORDERED: Zolpidem Tartrate 5 MG TAB PO PRN (09:17)
[2020-05-14] MEDS ORDERED: Ondansetron ODT 4 MG TAB PO PRN (09:17)
[2020-05-14] MEDS ORDERED: Calcium Carbonate 500 MG ChewTAB PO PRN (09:17)
[2020-05-14] MEDS ORDERED: Ondansetron PF 4 MG/2 ML Vial IVP PRN (09:17)
[2020-05-14] MEDS ORDERED: Senokot S 8.6-50 MG TAB PO PRN (09:17)
[2020-05-14 09:40] LABS: Lactic Acid 3.8 mmol/L (0.5-2.2)
[2020-05-14] MEDS ORDERED: Iopamidol-370 76% 500 ML 1 ML ONE (12:05)
[2020-05-14 12:13] LABS: Ferritin 4.26 ng/mL (10-291)
[2020-05-14 12:36] LABS: HBCM Index 0.05 S/CO (0-0.79); HBSAg Index 0.15 S/CO (0-0.99); Hep A IgM AB Non-Reactive (NonReactive); Hep B Surf Ag Non-Reactive S/CO (NonReactive); Hep C IgG Ab Non-Reactive (NonReactive); Hepatitis B Core IgM Abs Non-Reactive (NonReactive)
[2020-05-14 13:01] LABS: SARS-CoV-2 PCR by NAA Not Detected (NotDetected)
[2020-05-14 17:22] VITALS: BMI 39.7
[2020-05-14] MEDS: Cefepime 1 GM in Sodium Chloride 0.9% 100 ML IVPB SCH (20:29)
[2020-05-14] MEDS ORDERED: Famotidine 20 MG TAB PO SCH (21:00)
[2020-05-15 04:40] LABS: #Eosinphils 0.1 thou/uL (0.0-0.7); #Lymphocytes 1.2 thou/uL (1.20-3.40); #Monocytes 0.3 thou/uL (0.11-0.59); #Neutrophils 1.2 thou/uL (1.40-6.50); %Basophils 1.1 % (0.0-1.0); %Eosinophils 2.8 % (0.0-10.0); %Lymphocytes 42.1 % (21.0-51.0); %Monocytes 11.5 % (0.0-10.0); %Neutrophils 42.5 % (42.0-75.0); Hemoglobin 6.8 g/dL (12.0-16.0); Mean Corpuscular HGB CONC 32.2 g/dL (32.0-36.0); Mean Corpuscular Hemoglobin 30.4 pg (27.0-31.0); Mean Corpuscular Volume 94.5 fL (78.0-98.0); Mean Platelet Volume 7.3 fL (7.4-10.4); Platelet Count 127 thou/uL (130-400); RBC Distribution Width 15.5 % (11.5-14.5); Red Blood Cell (RBC) Count 2.22 mill/uL (4.20-5.40); White Blood Cell (WBC) Count 2.8 thou/uL (4.8-10.8)
[2020-05-15 04:56] LABS: Lactic Acid 1.1 mmol/L (0.5-2.2)
[2020-05-15 05:00] LABS: ALT (SGPT) 14 U/L (8-55); AST (SGOT) 23 U/L (5-34); Albumin 2.7 g/dL (3.4-4.8); Alkaline Phosphatase 58 U/L (40-110); Anion Gap 9 mmol/L (10-20); BUN (Urea Nitrogen) 8 mg/dL (9.8-20.1); Bilirubin, Total 0.5 mg/dL (0.2-1.2); Calc. Creatinine Clearance 79 mL/min (70-130); Calcium 7.5 mg/dL (7.8-10.44); Carbon Dioxide 23 mmol/L (23-31); Chloride 108 mmol/L (98-107); Globulin 2.9 g/dL (2.4-3.5); Glucose 132 mg/dL (83-110); Protein, Total 5.6 g/dL (5.8-8.1); Sodium 136 mmol/L (136-145)
[2020-05-15] MEDS ORDERED: Levothyroxine Sodium 50 MCG TAB PO SCH (07:45)
[2020-05-15] MEDS ORDERED: Sodium Bicarbonate 2.5 MEQ/5 ML VIAL ONE (08:00)
[2020-05-15] MEDS ORDERED: Lidocaine 1% PF 5 ML VIAL ONE (08:00)
[2020-05-15] MEDS: Oxybutynin ER 5 MG TAB PO SCH (08:55)
[2020-05-15] MEDS: Cefepime 1 GM in Sodium Chloride 0.9% 100 ML IVPB SCH ×2 (08:55→21:01)
[2020-05-15] MEDS ORDERED: Enoxaparin Sodium 40 MG/0.4 ML SYRINGE SC SCH (09:00)
[2020-05-15] MEDS ORDERED: Pantoprazole 40 MG VIAL IVP SCH (09:00)
[2020-05-15 09:37] LABS: Iron 15 ug/dL (50-170); Iron Binding Capacity, Total 310 mcg/dL (265-497)
[2020-05-15 09:39] LABS: Fluid, Glucose 133 mg/dL (Not Available); Fluid, LDH 38 U/L (Not Available); Fluid, Protein Less than 1.0 g/dL (Not Available)
[2020-05-15 10:09] LABS: RBC Count-Automated (BF) 587 /cu.mm; WBC/Nucleated-Auto (BF) 406 uL
[2020-05-15 11:08] LABS: BF Color Yellow; Body Fluid Source Ascites Body Fluid; Clarity Hazy (Clear); Tube # EDTA
[2020-05-15 11:11] LABS: BF Segmented Neutrophils 2 %; Cell Count Non Hematic 43 %; Eosinophils 1 %; Lymphocytes 54 %
[2020-05-15] MEDS: Atorvastatin Calcium 20 MG TAB PO SCH (21:01)
[2020-05-15] MEDS: Pantoprazole 40 MG VIAL IVP SCH (21:02)
[2020-05-16] MEDS: Levothyroxine Sodium 50 MCG TAB PO SCH (05:21)
[2020-05-16 05:28] LABS: HBCM Index 0.07 S/CO (0-0.79); HBSAg Index 0.23 S/CO (0-0.99); Hep A IgM AB Non-Reactive (NonReactive); Hep A IgM S/CO 0.16 S/CO (0-0.79); Hep B Surf Ag Non-Reactive S/CO (NonReactive); Hep C IgG Ab Non-Reactive (NonReactive); Hep C Index 0.12 S/CO (0-0.79); Hepatitis B Core IgM Abs Non-Reactive (NonReactive)
[2020-05-16 07:58] LABS: ALT (SGPT) 16 U/L (8-55); AST (SGOT) 25 U/L (5-34); Albumin 2.7 g/dL (3.4-4.8); Alkaline Phosphatase 56 U/L (40-110); Anion Gap 10 mmol/L (10-20); BUN (Urea Nitrogen) 7 mg/dL (9.8-20.1); Bilirubin, Total 0.8 mg/dL (0.2-1.2); Calc. Creatinine Clearance 90 mL/min (70-130); Calcium 7.7 mg/dL (7.8-10.44); Carbon Dioxide 25 mmol/L (23-31); Chloride 107 mmol/L (98-107); Glucose 130 mg/dL (83-110); Protein, Total 5.7 g/dL (5.8-8.1); Sodium 138 mmol/L (136-145)
[2020-05-16 08:02] LABS: #Eosinphils 0.1 thou/uL (0.0-0.7); #Monocytes 0.3 thou/uL (0.11-0.59); %Basophils 1.4 % (0.0-1.0); %Eosinophils 4.2 % (0.0-10.0); %Lymphocytes 42.5 % (21.0-51.0); %Monocytes 10.6 % (0.0-10.0); %Neutrophils 41.3 % (42.0-75.0); Hemoglobin 7.5 g/dL (12.0-16.0); Mean Corpuscular HGB CONC 32.3 g/dL (32.0-36.0); Mean Corpuscular Hemoglobin 30.2 pg (27.0-31.0); Mean Corpuscular Volume 93.5 fL (78.0-98.0); Mean Platelet Volume 7.3 fL (7.4-10.4); Platelet Count 116 thou/uL (130-400); RBC Distribution Width 15.2 % (11.5-14.5); White Blood Cell (WBC) Count 2.5 thou/uL (4.8-10.8)
[2020-05-16] MEDS: cefTRIAXone\\ROCEPHIN 1 GM in Sodium Chloride 0.9% 100 ML IVPB SCH (08:43)
[2020-05-16] MEDS: Oxybutynin ER 5 MG TAB PO SCH (08:43)
[2020-05-16] MEDS: Pantoprazole 40 MG VIAL IVP SCH ×2 (08:44→20:49)
[2020-05-16] MEDS ORDERED: Iron, Sodium Ferric Gluconate 250 MG in Sodium Chloride 0.9% 100 ML IVPB SCH (09:00)
[2020-05-16] MEDS ORDERED: PROPOFOL 200 MG/20 ML VIAL ONE (10:35)
[2020-05-16 18:55] LABS: ANA Symphony (Qualitative) POSITIVE (Negative); ANA Symphony (Quantitative) 1.4 Ratio (< 0.7 Negative); CENP IgG Antibody 1.1 EliAU/mL (<7 Negative); EliA Vaculitis New Method **** NEW METHOD ****; Jo-1 IgG Antibody 0.7 EliAU/mL (<7 Negative); Mitochondrial Ab 1.8 U/mL (<4 Negative); RNP70 IgG Antibody 0.5 EliAU/mL (<7 Negative); SSA/Ro IgG Antibody 0.9 EliAU/mL (<7 Negative); SSB/La IgG Antibody 0.6 EliAU/mL (<7 Negative); Scleroderma-70 IgG Antibody 0.6 EliAU/mL (<7 Negative); Smith D IgG Antibody 1.4 EliAU/mL (<7 Negative); dsDNA IgG Antibody 1.3 IU/mL (<10 Negative)
[2020-05-16] MEDS: Atorvastatin Calcium 20 MG TAB PO SCH (20:49)
[2020-05-16] MEDS: HumaLOG 300 UNITS/3 ML VIAL SC PRN (20:53)
[2020-05-16] MEDS: Octreotide Acetate 1,250 MCG in Sodium Chloride 0.9% 250 ML 250 ML IVPB SCH (23:33)
[2020-05-17] MEDS: Levothyroxine Sodium 50 MCG TAB PO SCH (05:39)
[2020-05-17] MEDS: cefTRIAXone\\ROCEPHIN 1 GM in Sodium Chloride 0.9% 100 ML IVPB SCH (08:19)
[2020-05-17] MEDS: Pantoprazole 40 MG VIAL IVP SCH ×2 (08:20→20:23)
[2020-05-17] MEDS: Oxybutynin ER 5 MG TAB PO SCH (08:23)
[2020-05-17 10:26] LABS: Hemoglobin 8.1 g/dL (12.0-16.0)
[2020-05-17] MEDS: HumaLOG 300 UNITS/3 ML VIAL SC PRN ×2 (11:43→20:26)
[2020-05-17] MEDS: Atorvastatin Calcium 20 MG TAB PO SCH (20:23)
[2020-05-18] MEDS: Octreotide Acetate 1,250 MCG in Sodium Chloride 0.9% 250 ML 250 ML IVPB SCH (01:46)
[2020-05-18] MEDS: Levothyroxine Sodium 50 MCG TAB PO SCH (05:39)
[2020-05-18] MEDS: HumaLOG 300 UNITS/3 ML VIAL SC PRN (05:39)
[2020-05-18 05:58] LABS: #Eosinphils 0.1 thou/uL (0.0-0.7); #Lymphocytes 1.2 thou/uL (1.20-3.40); #Monocytes 0.5 thou/uL (0.11-0.59); #Neutrophils 2.8 thou/uL (1.40-6.50); %Basophils 0.5 % (0.0-1.0); %Eosinophils 1.2 % (0.0-10.0); %Monocytes 11.6 % (0.0-10.0); %Neutrophils 60.7 % (42.0-75.0); Hemoglobin 7.7 g/dL (12.0-16.0); Mean Corpuscular HGB CONC 32.6 g/dL (32.0-36.0); Mean Corpuscular Hemoglobin 30.6 pg (27.0-31.0); Mean Corpuscular Volume 93.8 fL (78.0-98.0); Platelet Count 134 thou/uL (130-400); RBC Distribution Width 15.6 % (11.5-14.5); Red Blood Cell (RBC) Count 2.51 mill/uL (4.20-5.40); White Blood Cell (WBC) Count 4.7 thou/uL (4.8-10.8)
[2020-05-18 06:21] LABS: Anion Gap 10 mmol/L (10-20); BUN (Urea Nitrogen) 5 mg/dL (9.8-20.1); Calc. Creatinine Clearance 90 mL/min (70-130); Calcium 7.9 mg/dL (7.8-10.44); Carbon Dioxide 25 mmol/L (23-31); Chloride 104 mmol/L (98-107); Glucose 180 mg/dL (83-110); Potassium 4.3 mmol/L (3.5-5.1); Sodium 135 mmol/L (136-145)
[2020-05-18] MEDS: cefTRIAXone\\ROCEPHIN 1 GM in Sodium Chloride 0.9% 100 ML IVPB SCH (07:53)
[2020-05-18] MEDS: Pantoprazole 40 MG VIAL IVP SCH (07:54)
[2020-05-18] MEDS: Oxybutynin ER 5 MG TAB PO SCH (07:54)
[2020-05-18 08:08] VITALS: BP 127/69; TEMP 98.8
== END 2020-05-18 14:44 | disposition home or self-care (01) | DRG 432 ==
LOC: ERS 04:57 → ERHOLD 07:57 → 2NO 17:16 → T4-A 05-16 15:07
PROVIDERS: ADMIT Internal Medicine; ATTEND Hospitalist
PROC: 0W9G3ZZ Drainage of Peritoneal Cavity, Percutaneous Approach (ICD-10-PCS; 2020-05-15)
PROC: 30233N1 Transfusion of Nonautologous Red Blood Cells into Peripheral Vein, Percutaneous Approach (ICD-10-PCS; 2020-05-15)
PROC: 06L38CZ Occlusion of Esophageal Vein with Extraluminal Device, Via Natural or Artificial Opening Endoscopic (ICD-10-PCS; principal; 2020-05-16)
DX: K74.60 Unspecified cirrhosis of liver (principal); A41.9 Sepsis, unspecified organism; G93.41 Metabolic encephalopathy; I85.11 Secondary esophageal varices with bleeding; R18.8 Other ascites; E87.2 Acidosis; K76.6 Portal hypertension; N30.00 Acute cystitis without hematuria; E11.649 Type 2 diabetes mellitus with hypoglycemia without coma; I10 Essential (primary) hypertension; F41.9 Anxiety disorder, unspecified; F32.9 Major depressive disorder, single episode, unspecified; E03.9 Hypothyroidism, unspecified; D50.9 Iron deficiency anemia, unspecified; R53.81 Other malaise; K31.89 Other diseases of stomach and duodenum; Z20.822 Contact with and (suspected) exposure to COVID-19; E78.5 Hyperlipidemia, unspecified; Z88.8 Allergy status to other drugs, medicaments and biological substances; Z79.84 Long term (current) use of oral hypoglycemic drugs; Z90.710 Acquired absence of both cervix and uterus; Z90.49 Acquired absence of other specified parts of digestive tract
CPT/HCPCS: 36415; 36416; 36430; 49083; 51701; 71045; 74177; 80048; 80053; 80074; 81003; 81015; 82042; 82103; 82105; 82140; 82274; 82390; 82728; 82945; 83516; 83540; 83550; 83605; 83615; 83690; 84157; 85014; 85018; 85025; 85060; 85610; 85730; 86038; 86225; 86235; 86850; 86900; 86901; 87040; 87070; 87077; 87086; 87186; 87205; 87635; 89051; 93005; 96365; 96367; 96375; C9113; J0692; J0696; J1815; J2354; J2405; J2704; J2916; J3370; J3490; J7050; P9016; Q9967; U0003; U0005

== ENCOUNTER 2020-07-03 12:06 | Outpatient (CLI) | payer MEDICARE ==
[2020-07-04 00:58] LABS: SARS-CoV-2 PCR by NAA Not Detected (NotDetected)
== END 2020-07-03 12:07 | disposition home or self-care (01) ==
LOC: LABBT 12:06
PROVIDERS: ATTEND Internal Medicine Gastroenterology
DX: Z01.812 Encounter for preprocedural laboratory examination (principal); I85.00 Esophageal varices without bleeding; Z20.822 Contact with and (suspected) exposure to COVID-19
CPT/HCPCS: U0003; U0005; 87635

== ENCOUNTER 2020-07-08 12:20 | Day surgery (SDC) | payer MEDICARE ==
[2020-07-03 10:04] VITALS: BMI 34.2
[2020-07-08] MEDS ORDERED: Lidocaine 1% PF 5 ML VIAL ONE (14:37)
[2020-07-08] MEDS ORDERED: PROPOFOL 200 MG/20 ML VIAL ONE (14:37)
== END 2020-07-08 16:10 | disposition home or self-care (01) ==
LOC: SDC 12:20
PROVIDERS: ATTEND Internal Medicine Gastroenterology
PROC: 0DJ08ZZ Inspection of Upper Intestinal Tract, Via Natural or Artificial Opening Endoscopic (ICD-10-PCS; principal; 2020-07-08)
DX: K74.60 Unspecified cirrhosis of liver (principal); K76.6 Portal hypertension; K31.89 Other diseases of stomach and duodenum; I85.10 Secondary esophageal varices without bleeding; K44.9 Diaphragmatic hernia without obstruction or gangrene; K76.0 Fatty (change of) liver, not elsewhere classified; E11.9 Type 2 diabetes mellitus without complications; D64.9 Anemia, unspecified; E66.3 Overweight; Z68.35 Body mass index [BMI] 35.0-35.9, adult; Z66 Do not resuscitate; Z87.891 Personal history of nicotine dependence; Z79.4 Long term (current) use of insulin; Z79.899 Other long term (current) drug therapy; Z88.6 Allergy status to analgesic agent; Z88.8 Allergy status to other drugs, medicaments and biological substances
CPT/HCPCS: J2704

== ENCOUNTER 2021-03-26 08:01 | Day surgery (SDC) | payer MEDICARE ==
[2021-03-25 12:59] VITALS: BMI 38.8
[2021-03-26 08:20] LABS: #Eosinphils 0.1 thou/uL (0.0-0.7); #Lymphocytes 1.4 thou/uL (1.20-3.40); #Monocytes 0.3 thou/uL (0.11-0.59); #Neutrophils 1.3 thou/uL (1.40-6.50); %Basophils 0.9 % (0.0-1.0); %Eosinophils 3.5 % (0.0-10.0); %Lymphocytes 44.1 % (21.0-51.0); %Monocytes 10.9 % (0.0-10.0); %Neutrophils 40.6 % (42.0-75.0); Hemoglobin 9.4 g/dL (12.0-16.0); Mean Corpuscular HGB CONC 31.4 g/dL (32.0-36.0); Mean Corpuscular Hemoglobin 30.7 pg (27.0-31.0); Mean Corpuscular Volume 97.7 fL (78.0-98.0); Mean Platelet Volume 6.7 fL (7.4-10.4); Platelet Count 157 thou/uL (130-400); RBC Distribution Width 18.9 % (11.5-14.5); Red Blood Cell (RBC) Count 3.05 mill/uL (4.20-5.40); White Blood Cell (WBC) Count 3.1 thou/uL (4.8-10.8)
[2021-03-26] MEDS ORDERED: Lidocaine 1% PF 5 ML VIAL ONE (08:22)
[2021-03-26] MEDS ORDERED: Sodium Bicarbonate 2.5 MEQ/5 ML VIAL ONE (08:22)
[2021-03-26 08:33] LABS: INR-International Normal Ratio 1.5; PTT 38.5 sec (22.9-36.1); Prothrombin Time 18.8 sec (12.0-14.7)
[2021-03-26 09:53] VITALS: BP 132/70; TEMP 97.9
[2021-03-26 11:05] LABS: RBC Count-Automated (BF) 389 /cu.mm; WBC/Nucleated-Auto (BF) 119 /cu.mm
[2021-03-26 11:45] LABS: Body Fluid Source Ascites Body Fluid
[2021-03-26 11:46] LABS: BF Color Yellow; Clarity Hazy (Clear); Tube # EDTA
[2021-03-26 11:59] LABS: BF Segmented Neutrophils 7 %; Cell Count Non Hematic 31 %; Lymphocytes 62 %
[2021-03-26] MEDS ORDERED: FLU VACC QS2021-22(65YR UP)/PF 240 MCG/0.7 ML SYRINGE IM ONE (14:00)
== END 2021-03-26 09:30 | disposition home or self-care (01) ==
LOC: ULT 08:01
PROVIDERS: ATTEND Physician Assistant Medical
PROC: 0W9G3ZX Drainage of Peritoneal Cavity, Percutaneous Approach, Diagnostic (ICD-10-PCS; principal; 2021-03-26)
DX: K74.60 Unspecified cirrhosis of liver (principal); R18.8 Other ascites; Z79.84 Long term (current) use of oral hypoglycemic drugs; Z79.899 Other long term (current) drug therapy; Z88.6 Allergy status to analgesic agent; Z88.8 Allergy status to other drugs, medicaments and biological substances
CPT/HCPCS: 49083; 82042; 84155; 85025; 85060; 85610; 85730; 87070; 87205; 88112; 88305; 89051

== ENCOUNTER 2021-04-13 15:53 | Outpatient (CLI) | payer MEDICARE ==
[2021-04-14 13:25] LABS: SARS-CoV-2 PCR by NAA DETECTED (NotDetected)
== END 2021-04-13 15:54 | disposition home or self-care (01) ==
LOC: LABBT 15:53
PROVIDERS: ATTEND Internal Medicine Gastroenterology
DX: U07.1 COVID-19 (principal)
CPT/HCPCS: U0003; U0005

== ENCOUNTER 2021-07-06 02:38 | Emergency (ER) | payer MEDICARE ==
[2021-07-06 04:05] LABS: #Eosinphils 0.1 thou/uL (0.0-0.7); #Monocytes 0.3 thou/uL (0.11-0.59); #Neutrophils 1.9 thou/uL (1.40-6.50); %Basophils 0.9 % (0.0-1.0); %Monocytes 8.8 % (0.0-10.0); %Neutrophils 58.2 % (42.0-75.0); Hemoglobin 8.9 g/dL (12.0-16.0); Mean Corpuscular HGB CONC 32.3 g/dL (32.0-36.0); Mean Platelet Volume 6.2 fL (7.4-10.4); Platelet Count 166 thou/uL (130-400); RBC Distribution Width 14.4 % (11.5-14.5); Red Blood Cell (RBC) Count 2.71 mill/uL (4.20-5.40); White Blood Cell (WBC) Count 3.3 thou/uL (4.8-10.8)
[2021-07-06 04:18] LABS: INR-International Normal Ratio 1.5; Prothrombin Time 18.7 sec (12.0-14.7)
[2021-07-06 04:19] LABS: PTT 38.8 sec (22.9-36.1)
[2021-07-06 04:27] LABS: ALT (SGPT) 9 U/L (8-55); AST (SGOT) 25 U/L (5-34); Albumin 2.3 g/dL (3.4-4.8); Alkaline Phosphatase 59 U/L (40-110); Anion Gap 14 mmol/L (10-20); BUN (Urea Nitrogen) 17 mg/dL (9.8-20.1); Calc. Creatinine Clearance 0 mL/min (70-130); Calcium 8.1 mg/dL (7.8-10.44); Carbon Dioxide 25 mmol/L (23-31); Chloride 95 mmol/L (98-107); Globulin 3.9 g/dL (2.4-3.5); Glucose 85 mg/dL (83-110); Lipase 26 U/L (8-78); Protein, Total 6.2 g/dL (5.8-8.1); Sodium 130 mmol/L (136-145)
== END 2021-07-06 05:08 | disposition home or self-care (01) ==
LOC: ERS 02:38
DX: K59.00 Constipation, unspecified (principal); J06.9 Acute upper respiratory infection, unspecified; E11.9 Type 2 diabetes mellitus without complications; Z87.19 Personal history of other diseases of the digestive system; Z79.899 Other long term (current) drug therapy
CPT/HCPCS: 80053; 82140; 83690; 85025; 85610; 85730; 93005

== ENCOUNTER 2021-07-13 13:31 | Outpatient (CLI) | payer MEDICARE | END 2021-07-13 13:32 | disposition home or self-care (01) | LOC: LABBT 13:31 | PROVIDERS: ATTEND Physician Assistant Medical | DX: N17.9 Acute kidney failure, unspecified (principal); R18.8 Other ascites; K59.00 Constipation, unspecified; K74.60 Unspecified cirrhosis of liver; D64.9 Anemia, unspecified; Z20.822 Contact with and (suspected) exposure to COVID-19 | CPT/HCPCS: U0003; U0005 ==

== ENCOUNTER 2021-07-16 12:01 | Day surgery (SDC) | payer MEDICARE ==
[2021-07-15 10:38] VITALS: BMI 34.2
[2021-07-16] MEDS ORDERED: PROPOFOL 200 MG/20 ML VIAL ONE (13:55)
[2021-07-16] MEDS ORDERED: PHENYLEPHRINE-NS 100 MCG/ML 10 ML SYRINGE ONE (13:55)
[2021-07-16] MEDS ORDERED: Lidocaine 1% PF 5 ML VIAL ONE (13:55)
[2021-07-16] MEDS ORDERED: Furosemide 20 MG/2 ML VIAL ONE (15:44)
== END 2021-07-16 16:19 | disposition home or self-care (01) ==
LOC: SDC 12:01
PROVIDERS: ATTEND Internal Medicine Gastroenterology
PROC: 06L38CZ Occlusion of Esophageal Vein with Extraluminal Device, Via Natural or Artificial Opening Endoscopic (ICD-10-PCS; principal; 2021-07-16)
PROC: 0DBK8ZX Excision of Ascending Colon, Via Natural or Artificial Opening Endoscopic, Diagnostic (ICD-10-PCS; 2021-07-16)
PROC: 0DBL8ZX Excision of Transverse Colon, Via Natural or Artificial Opening Endoscopic, Diagnostic (ICD-10-PCS; 2021-07-16)
PROC: 3E0H8KZ Introduction of Other Diagnostic Substance into Lower GI, Via Natural or Artificial Opening Endoscopic (ICD-10-PCS; 2021-07-16)
DX: Z12.11 Encounter for screening for malignant neoplasm of colon (principal); K76.0 Fatty (change of) liver, not elsewhere classified; K74.60 Unspecified cirrhosis of liver; K76.6 Portal hypertension; K31.89 Other diseases of stomach and duodenum; I85.10 Secondary esophageal varices without bleeding; D12.2 Benign neoplasm of ascending colon; D12.3 Benign neoplasm of transverse colon; K44.9 Diaphragmatic hernia without obstruction or gangrene; K63.89 Other specified diseases of intestine; K57.30 Diverticulosis of large intestine without perforation or abscess without bleeding; K64.8 Other hemorrhoids; K62.89 Other specified diseases of anus and rectum; E11.9 Type 2 diabetes mellitus without complications; D64.9 Anemia, unspecified; Z87.891 Personal history of nicotine dependence; Z79.890 Hormone replacement therapy; Z79.899 Other long term (current) drug therapy; Z88.6 Allergy status to analgesic agent; Z88.8 Allergy status to other drugs, medicaments and biological substances; E66.9 Obesity, unspecified; Z68.34 Body mass index [BMI] 34.0-34.9, adult
CPT/HCPCS: 88305; J1940; J2704